=== PATIENT | male | born 1980 | race Caucasian/White ===

== ENCOUNTER 2024-10-16 17:19 | Emergency (ER) | payer MEDICAID, SELFPAY ==
[2024-10-16 17:35] VITALS: BP 133/78; PULSE 92; TEMP 37.3; O2SAT 95; BMI 38.5
--- NOTE | 2024-10-16 17:38 | XR_ITS ---
The [address] [address] Patient Name: MUNA VELA MRN: [id number] date: 1980 Sex: M Assigned Patient Location: ER Current Patient Location: Accession/Order Number: [id number] Exam Date: 10/16/2024 18:15 Report Date: 10/16/2024 19:50 At the request of: PRICE VALLEJO Procedure: XR chest 1V PORTABLE CHEST X-RAY. CLINICAL HISTORY: cough COMPARISON: None. TECHNIQUE: Single AP portable chest radiograph. FINDINGS: TUBES AND LINES: None. LUNGS: There are mild bilateral perihilar interstitial opacities. PLEURA: No effusions or pneumothorax. HEART AND MEDIASTINUM: Within normal limits for portable technique. OSSEOUS STRUCTURES: No acute abnormality. XR/XR chest 1V IMPRESSION: Mild bilateral perihilar interstitial opacities which may be infectious or inflammatory. Electronically authenticated by: ELVA TRAN Date: 10/16/2024 19:50
[2024-10-16 18:04] LABS: Influenza Virus A Antigen Positive; Influenza Virus B Antigen Negative; Internal Control Within Normal Limits; SARS-CoV-2 Ag NEGATIVE (NEGATIVE)
[2024-10-16 18:04] LABS: Internal Control Within Normal Limits; Strep A Antigen Screen Negative
--- NOTE | 2024-10-16 18:49 | ED.URI1 ---
HPI - URI/Sore Throat General Chief Complaint: Upper Respiratory Infection Stated Complaint: COUGH Time Seen by Provider: 10/16/24 18:49 History of Present Illness HPI Narrative: 43 year old male presents to the ED for cough, fatigue, SOB, body aches, congestion. Onset was 4-5 days ago. Denies fever, N/V/D. He is a smoker. He has sleep apnea; he has a CPAP at home. Related Data Previous Rx's ?Medication ?Instructions ?Recorded albuterol sulfate 90 mcg/actuation 2 inh inhalation Q6H PRN shortness 10/16/24 aerosol inhaler of breath or wheezing #8.5 grams azithromycin 250 mg tablet See Rx Instructions PO .COMPLEX #6 10/16/24 (Zithromax Z-Kolby) tabs oseltamivir 75 mg capsule (Tamiflu) 75 mg PO BID 5 days #10 caps 10/16/24 prednisone 10 mg tablet See Rx Instructions .Route 10/16/24 .COMPLEX #30 tabs Allergies Allergy/AdvReac Type Severity Reaction Status Date / Time Sulfa (Sulfonamide AdvReac Severe Unknown Verified 10/16/24 17:35 Antibiotics) Review of Systems ROS Constitutional Reports: fatigue; Denies: fever or chills Ears, nose, mouth, and throat Denies: throat pain or neck pain Cardiovascular Denies: chest pain Respiratory Reports: shortness of breath and cough Gastrointestinal Denies: abdominal pain, nausea, vomiting or diarrhea Musculoskeletal Denies: back pain or neck pain Integumentary/Breast Denies: rash Neurological Denies: headache PFSH PFSH Social History Little interest or pleasure in doing things: not at all Feeling down, depressed, or hopeless: not at all Exam Constitutional Vital Signs, click to edit/add: Last Vital Signs Temp 99.2 F 10/16/24 17:35 Pulse 92 H 10/16/24 19:13 Resp 26 H 10/16/24 19:13 BP 133/78 10/16/24 17:35 Pulse Ox 91 L 10/16/24 19:13 O2 Del Method Room Air 10/16/24 19:13 Common normals: no apparent distress and oriented x3 General appearance: cooperative HENMT Nose: nasal discharge External ear: external ears normal Mouth: oral and palatal mucosa normal, lip normal and tongue normal Throat: posterior oropharynx normal and uvula midline Eye Common normals: conjunctivae normal and no scleral icterus Neck & C-Spine Common normals: supple Chest Chest: symmetrical chest wall rise Respiratory Effort & inspection: able to speak in complete sentences, symmetric chest movement, tachypneic and labored; no grunting and no stridor Cardio Common normals: regular rate and regular rhythm Neuro Common normals: oriented x3 and moves all extremities Sensorium/orientation: awake and alert Speech: speech normal Course Vital Signs Vital signs: Vital Signs Temperature 99.2 F 10/16/24 17:35 Pulse Rate 92 H 10/16/24 17:35 Respiratory Rate 18 10/16/24 17:35 Blood Pressure 133/78 10/16/24 17:35 Pulse Oximetry 95 10/16/24 17:35 Oxygen Delivery Method Room Air 10/16/24 17:35 Temperature 99.2 F 10/16/24 17:35 Pulse Rate 92 H 10/16/24 19:13 Respiratory Rate 26 H 10/16/24 19:13 Blood Pressure 133/78 10/16/24 17:35 Pulse Oximetry 91 L 10/16/24 19:13 Oxygen Delivery Method Room Air 10/16/24 19:13 MDM - URI/Sore Throat MDM Narrative Medical decision making narrative: He tested positive for influenza A. Covid-19 was negative. Chest x-ray showed mild bilateral perihilar interstitial opacities. Findings were discussed with the patient. He requested to be discharged home. He was given Duoneb and solumedrol here. The patient is a smoker. Prescriptions were provided for Proventil, Zithromax, Prednisone, and Tamiflu. Follow up with pcp for a recheck, further evaluation and treatment. Return precautions were discussed. Differential Diagnosis Differential diagnosis: Likely upper respiratory infection, influenza and other (Covid-19, pneumonia, COPD) Medical Records Attestation: I reviewed the patient's medical records. Lab Data Attestation: I reviewed the patient's lab results. Labs: Lab Results 10/16/24 10/16/24 Range/Units 17:40 17:41 Influenza Type A Ag Positive A Influenza Type B Ag Negative SARS-CoV-2 Ag (CV2AG) Negative (NEGATIVE) Streptococcus Screen Negative Imaging Data Chest x-ray: Attestation: I have reviewed the pertinent imaging results. Radiologist's impression: Mild bilateral perihilar interstitial opacities which may be infectious or inflammatory. Discharge Plan Discharge Chief Complaint: Upper Respiratory Infection Clinical Impression: Influenza A Patient Disposition: Home, Self-Care Time of Disposition Decision: 21:13 Condition: Good Mode of Transportation: Private Vehicle Prescriptions / Home Meds: New oseltamivir [Tamiflu] 75 mg capsule 75 mg PO BID 5 Days Qty: 10 0RF prednisone 10 mg tablet See Rx Instructions .ROUTE .COMPLEX Qty: 30 0RF Rx Instructions: Take 5 tablets on days 1-2, 4 tabs on days 3-4, 3 tabs on days 5-6, 2 tabs on days 7-8, 1 tab on days 9-10. albuterol sulfate 90 mcg/actuation HFA aerosol inhaler 2 inh inhalation Q6H PRN (Reason: shortness of breath or wheezing) Qty: 8.5 0RF azithromycin [Zithromax Z-Kolby] 250 mg tablet See Rx Instructions .ROUTE .COMPLEX Qty: 6 0RF Rx Instructions: For 250 mg dose pack: take 500 mg today (day 1), then 250 mg for 4 days (days 2-5) Print Language: Belarusian Instructions: How to Use a Metered-Dose Inhaler (ED), Influenza (ED) Additional Instructions: Return to the ER for worsening symptoms. Referrals: Physician,Non-Staff, [Physician] - 1 week Discharge Date/Time: 10/16/24 21:21
[2024-10-16] MEDS: METHYLPREDNISOLONE SOD SUCC PF 125 MG/2 ML VIAL IM (19:06)
[2024-10-16] MEDS: IPRATROPIUM/ALBUTEROL SULFATE 3 ML AMPUL.NEB IH (19:11)
[2024-10-16 19:13] VITALS: PULSE 92; O2SAT 91
[2024-10-16 21:18] VITALS: PULSE 84; O2SAT 96
== END 2024-10-16 21:21 | disposition home or self-care (01) ==
PROVIDERS: Emergency Medicine; Emergency Provider Emergency Medicine; PCP Family Medicine
DX: J10.1 Influenza due to other identified influenza virus with other respiratory manifestations (principal); F17.200 Nicotine dependence, unspecified, uncomplicated; G47.30 Sleep apnea, unspecified
CPT/HCPCS: 71045; 87070; 87804; 87811; 87880; 94640; 99284; J2919

== ENCOUNTER 2025-02-10 10:11 | Outpatient (OUT) | payer MEDICAID, SELFPAY ==
--- OUTSIDE RECORDS SUMMARY | 2025-02-10 10:17 | XMS_ITS | Patient Health Record ---
Author Organization [employer] [facility] Address [address] [place] [address] Care Team Providers Care Associate Application Developer Name Role Phone XXReji Ruiz Primary Care Provider [phone] Reason For Referral No Information Medications Medication SIG (Take, Route, Fr equency, Duration) Notes Start Date End Date Status Vicodin 5-325 MG 1 tablet as needed O rally every 4-6 hrs prn pain 07/17/2014 Active BuSpar 10 mg 1 tablet orally thre e times a day (tid) Dr Morelos Active Problems Problem Type SNOMED Code ICD Code Onset Dates Problem Status W/U Status Risk Notes Problem Strain of supraspinatus muscle AND/OR tendon (53184187) Supraspinatus (muscle) (tendon) sprain and strain (840.6) Active confirmed Plan Of Treatment No Information Insurance Providers Payer Name Payer Address Payer Phone Subscriber Number Group Number Insured Name Patient Relationship to Insured Coverage Start Date Coverage End Date XXXSELF PAY MUNA VELA Self - patient is the insured Medical (General) History Medical History History ICD Code depression Hospitalization History Reason Date(Month/Year) [facility] 04/01/2014
--- OUTSIDE RECORDS SUMMARY | 2025-02-10 10:37 | XMS_ITS | CCD ---
Author Organization [facility] Care Team Providers Care Video Editing Internship Name Role Phone HOUSE, DR RODRIGUEZ Primary Care Unavailable EVENS, DR CHUY Bunch Consulting Unavailabl e EVENS, DR CHUY Bunch Attending Unavailabl e EVENS, DR CHUY Bunch Admitting Unavailabl e TRISH, ELHAM PATINO Consulting Unavailable FLOYDS KNOBS, DR CRISOSTOMO Consulting Unavailable HOUSE, DR RODRIGUEZ Primary Care Unavailable HOUSE, DR RODRIGUEZ Consulting Unavailable HOUSE, DR RODRIGUEZ Attending Unavailable HOUSE, DR RODRIGUEZ Admitting Unavailable House, DO Rodriguez Primary Care Provider House, DO Rodriguez Attending Provider House, Stu Attending Unavailable House, Stu Primary Care Unavailable House, Stu Admitting Unavailable HOUSE, STU Kang Primary Care Unavailable HOUSE, DO STU Kang Attending Unavailable HOUSE, STU P Primary Care Unavailable HOUSE, DO STU P Attending Unavailable HOUSE, STU P Primary Care Unavailable HOUSE, DO STU P Attending Unavailable HOUSE, STU P Primary Care Unavailable HOUSE, DO STU P Attending Unavailable HOUSE, STU P Primary Care Unavailable HOUSE, DO STU Kang Attending Unavailable Allergies Allergy Classification Reported Allergen(s) Allergy Type Date of Onset Reaction(s) Facility (1 source) Sulfonamides (Antibiotic) Drug allergy (disorder) 0 [facility] Repository (1 source) sulfa drug; Translations: [sulfa drug] Propensity to adverse reactions to drug (disorder) [facility] Repository Problems Problem Classification Problem Date Documented Da te Episodic/Chronic Diabetes mellitus without complication (4 sources) Type 2 diabetes mellitus without complications; Translations: [TYPE 2 DM WITHOUT COMPLICATIONS] Onset: 08-31-2022 Chronic Essential hypertension (2 sources) Essential (primary) hypertension; Translations: [ESSENTIAL PRIMARY HYPERTENSION] Onset: 09-07-2022 Chronic Mood disorders (1 source) Major depressive disorder, single episode, severe with psychotic features; Translations: [ALEXANDREA DEPRESS 1 EPIS SEV W/PSYCH FEAT] Onset: 08-13-2022 Chronic Other aftercare (1 source) Other emt intermediate (current) drug therapy; Translations: [OTH [facility] CURRENT DRUG THERAPY] Onset: 08-13-2022 Episodic Residual codes; unclassified (1 source) Obstructive sleep apnea (adult)(pediatric); Translations: [Obstructive sleep apnea (adult) (pediatric)] Onset: 06-12-2023 Chronic Substance-related disorders (1 source) Nicotine dependence, cigarettes, uncomplicated; Translations: [NICOTINE DEPEND CIGARETTES UNCOMP] Onset: 08-13-2022 Chronic Substance-related disorders (1 source) Cannabis use, unspecified, uncomplicated; Translations: [CANNABIS USE UNS UNCOMPLICATED] Onset: 08-13-2022 Episodic Suicide and intentional self-inflicted injury (4 sources) Suicidal ideations; Translations: [SUICIDAL IDEATIONS] Onset: 08-09-2022 Episodic Unclassified (1 source) CONTACT W/AND (SUSP) EXPOS COVID-19; Translations: [CONTACT W/AND (SUSP) EXPOS COVID-19] Onset: 08-13-2022 Results Test Name Value Interpretation Reference Range Facil ity Outside Recordson 10-22-2024 Outside Records [id number] [address] Rad - Other Radiology Report on 10-17-2024 Rad - Other Radiology Report [id number] [address] Outside Recordson 05-20-2024 Outside Records [id number] [address] [place] [address] Controlled Substances Agreem entson 05-06-2024 Controlled Substances Agreements [id number] 6#1.00[facility] GLYCOHEMOGLOBIN A1Con 2021 ADA RECOMMENDATION SEE BELOW Normal [facility] Comment on above: Result Comment: ADA RECOMMENDED LIMIT 4.0 - 6.0 ADA THERAPEUTIC TARGET < 7.0 ACTION SUGGESTED > 7.0 Performed By: #### A 1C #### [facility] [address] [place] [address] Dr. Beverly Jason Glucose [Mass/Vol] 103 mg/dL Normal [facility] Comment on above: Performed By: #### A 1C #### [facility] [address] [place] [address] Dr. Beverly Jason HbA1c (Bld) [Mass fraction] 5.2 % Normal 4.5-6.2 [facility] Comment on above: Performed By: #### A 1C #### [facility] [address] [place] [address] Dr. Beverly Jason ACETAMINOPHENon 08-09-2022 Acetaminophen [Mass/Vol] ug/mL Critically low 10.0-30.0 [facility] Comment on above: Performed By: #### S ALYC, ETH, ACET, CMP #### [facility] [address] [place] [address] Dr. Beverly Jason CBC AUTO DIFFon 08-09-2022 BASO # 0.0 103/ul Normal 0.0-0.1 [facility] Comment on above: Performed By: #### C BC #### [facility] [address] [place] [address] Dr. Beverly Jason Basophils/100 WBC (Bld) 0.3 % Normal 0.2-2.0 [facility] Comment on above: Performed By: #### C BC #### [facility] [address] [place] [address] Dr. Beverly Jason EO # 0.2 103/ul Normal 0.0-0.7 [facility] Comment on above: Performed By: #### C BC #### [facility] [address] [place] [address] Dr. Beverly Jason Eosinophils/100 WBC (Bld) 1.9 % Normal 0.9-7.0 [facility] Comment on above: Performed By: #### C BC #### [facility] [address] [place] [address] Dr. Beverly Jason Erythrocyte distribution width (RBC) [Ratio] 13.6 % Normal 11.0-15.0 [facility] Comment on above: Performed By: #### C BC #### [facility] [address] [place] [address] Dr. Beverly Jason Hematocrit (Bld) [Volume fraction] 40.3 % Critically low 42.0-54.0 [facility] Comment on above: Performed By: #### C BC #### [facility] [address] [place] [address] Dr. Beverly Jason Hemoglobin (Bld) [Mass/Vol] 13.6 g/dL Critically low 14.0-18.0 [facility] Comment on above: Performed By: #### C BC #### [facility] [address] [place] [address] Dr. Beverly Jason IG # 0.06 10e3/ul Critically high 0.00-0.03 [facility] Comment on above: Performed By: #### C BC #### [facility] [address] [place] [address] Dr. Beverly Jason IG % 0.6 % Critically high 0.0-0.5 [facility] Comment on above: Performed By: #### C BC #### [facility] [address] [place] [address] Dr. Beverly Jason LYMPH # 3.2 103/ul Normal 1.2-3.8 [facility] Comment on above: Performed By: #### C BC #### [facility] [address] [place] [address] Dr. Beverly Jason Lymphocytes/100 WBC (Bld) 30.7 % Normal 20.5-60.0 [facility] Comment on above: Performed By: #### C BC #### [facility] [address] [place] [address] Dr. Beverly Jason MANUAL DIFF REQ NO Normal [facility] Comment on above: Performed By: #### C BC #### [facility] [address] [place] [address] Dr. Beverly Jason MCH (RBC) [Entitic mass] 29.4 pg Normal 25.9-34.0 [facility] Comment on above: Performed By: #### C BC #### [facility] [address] [address] [address] Beverly Jason MCHC (RBC) [Mass/Vol] 33.7 g/dL Normal 29.9-35.2 [facility] Comment on above: Performed By: #### C BC #### [facility] [address] [address] [address] Beverly Jason MCV (RBC) [Entitic vol] 87.0 fL Normal 80.0-94.0 [facility] Comment on above: Performed By: #### C BC #### [facility] [address] [place] [address] Dr. Beverly Jason MONO # 0.7 103/ul Normal 0.3-0.8 [facility] Comment on above: Performed By: #### C BC #### [facility] [address] [place] [address] Dr. Beverly Jason Monocytes/100 WBC (Bld) 6.9 % Normal 1.7-12.0 [facility] Comment on above: Performed By: #### C BC #### [facility] [address] [place] [address] Dr. Beverly Jason NEUT # 6.2 103/ul Normal 1.4-6.5 [facility] Comment on above: Performed By: #### C BC #### [facility] [address] [place] [address] Dr. Beverly Jason Neutrophils/100 WBC (Bld) 59.6 % Normal 43.0-75.0 [facility] Comment on above: Performed By: #### C BC #### [facility] [address] [place] [address] Dr. Beverly Jason Platelet mean volume (Bld) [Entitic vol] 9.8 fL Normal 9.5-13.5 [facility] Comment on above: Performed By: #### C BC #### [facility] [address] [place] [address] Dr. Beverly Jason PLT 235 103/ul Normal 150-450 [facility] Comment on above: Performed By: #### C BC #### [facility] [address], [place] [address] Dr. Beverly Jason RBC 4.63 106/ul Critically low 4.70-6.[address] [facility] Comment on above: Performed By: #### C BC #### [facility] [address], [place] [address] Dr. Beverly Jason WBC 10.5 103/ul Normal 4.0-11.0 [facility] Comment on above: Performed By: #### C BC #### [facility] [id number] Beverly Jason Covid-19 PCR (CVDTBH)on 07-13 SARS-CoV-2 (COVID-19) RNA POP+probe Ql (Unsp spec) Not detected Normal NOT DETECTED [facility] Comment on above: Result Comment: When diagnostic testing is negative, the possibility of a false negative should be considered in the context of a patient's recent exposures and the presence of clinical signs and symptoms consistent with SARS-CoV-2. This test is not yet approved or cleared by the [place] FDA. When there are no FDA-approved or cleared tests available, and other criteria are met, FDA can make tests available under an emergency access mechanism called an Emergency Use Authorization (EUA). The EUA for this test is supported by the [employer] and Human Service's declaration that circumstances exist to justify the emergency use of in vitro diagnostics for the detection and/or diagnosis of the virus that causes COVID-19. This EUA will remain in effect for the duration of the COVID-19 declaration justifying emergency of IVDs, unless it is terminated or revoked by the FDA (after which the test may no longer be used). Performed By: #### C VDTBH #### [facility] [address] [place], [place] [id number] Dr. Beverly Jason DRUG SCREEN RAPID (URINE)on 08-09-2022 AMP Positive Abnormal NEGATIVE [facility] Comment on above: Performed By: #### D RUGRPD #### [facility] [address] [id number] Beverly Jason BAR Negative Normal NEGATIVE [facility] Comment on above: Performed By: #### D RUGRPD #### [facility] [address] [place] [address] Dr. Beverly Jason BUP Positive Abnormal NEGATIVE [facility] Comment on above: Performed By: #### D RUGRPD #### [facility] [address] [place] [address] Dr. Beverly Jason BZO Positive Abnormal NEGATIVE [facility] Comment on above: Performed By: #### D RUGRPD #### [facility] [address] [place] [address] Dr. Beverly Jason ROQUE Negative Normal NEGATIVE [facility] Comment on above: Performed By: #### D RUGRPD #### [facility] [address] [place] [address] Dr. Beverly Jason CUT-OFFS SEE BELOW Normal [facility] Comment on above: Result Comment: AMP (Amphetamine): 500ng/mL, BAR (Barbituates): 200 ng/mL, BZO (Benzodiazepines): 150 ng/mL, BUP (Buprenorphine): 10 ng/mL, ROQUE (Cocaine): 150 ng/mL, mAMP (Methamphetamine): 500 ng/mL, MTD (Methadone): 200 ng/mL, OPI (Opiates): 100 ng/mL, OXY (Oxycodone): 100 ng/mL, PCP (Phencyclidine): 25 ng/mL, PPX (Propoxyphene): 300 ng/mL, THC (Cannabinoids): 50 ng/mL, TCA (Trycyclic Antidepressants): 300 ng/mL Performed By: #### D RUGRPD #### [facility] [address] [place] [address] Dr. Beverly Jason DRUG CUT HEADER DRUG CLASS TEST SYSTEM CUT-OFF CONCENTRATIONS ARE FOLLOWS: Normal [facility] Comment on above: Performed By: #### D RUGRPD #### [facility] [address] [place] [address] Dr. Beverly Jason mAMP Negative Normal NEGATIVE [facility] Comment on above: Performed By: #### D RUGRPD #### [facility] [address] [place] [address] Dr. Beverly Jason MTD Negative Normal NEGATIVE [facility] Comment on above: Performed By: #### D RUGRPD #### [facility] [address] [address] [address] Beverly Jason OPI Negative Normal NEGATIVE [facility] Comment on above: Performed By: #### D RUGRPD #### [facility] [address] [address] [address] Beverly Jason OXY Negative Normal NEGATIVE [facility] Comment on above: Performed By: #### D RUGRPD #### [facility] [address] [address] [address] Beverly Jason PCP Negative Normal NEGATIVE [facility] Comment on above: Performed By: #### D RUGRPD #### [facility] [address] [place] [address] Dr. Beverly Jason PPX Negative Normal NEGATIVE [facility] Comment on above: Performed By: #### D RUGRPD #### [facility] [address] [address] [address] Beverly Jason TCA Negative Normal NEGATIVE [facility] Comment on above: Performed By: #### D RUGRPD #### [facility] [address] [address] [address] Beverly Jason THC Positive Abnormal NEGATIVE [facility] Comment on above: Performed By: #### D RUGRPD #### [facility] [address] [address] [address] Beverly Jason ETHANOL (BLD ALC)on 08-09-20 22 ALC NOTE NOTE: 80 mg/dl is the legal limit for a blood alcohol level Normal [facility] Comment on above: Performed By: #### S ALYC, ETH, ACET, CMP #### [facility] [address] [address] [address] Beverly Jason Ethanol [Mass/Vol] mg/dL Normal [facility] Comment on above: Performed By: #### S ALYC, ETH, ACET, CMP #### [facility] [address] [place] [address] Dr. Beverly Jason PROF 14(COMP METB)on 11-30-2 022 Albumin [Mass/Vol] 4.3 g/dL Normal 3.4-5.0 [facility] Comment on above: Performed By: #### S ALYC, ETH, ACET, CMP #### [facility] [address] [place] [address] Dr. Beverly Jason Albumin/Globulin [Mass ratio] 1.3 {ratio} Normal [facility] Comment on above: Performed By: #### S ALYC, ETH, ACET, CMP #### [facility] [address] [place] [address] Dr. Beverly Jason ALP [Catalytic activity/Vol] 57 U/L Normal 46-116 [facility] Comment on above: Performed By: #### S ALYC, ETH, ACET, CMP #### [facility] [address] [place] [address] Dr. Beverly Jason ALT [Catalytic activity/Vol] 45 U/L Normal 16-63 [facility] Comment on above: Performed By: #### S ALYC, ETH, ACET, CMP #### [facility] [address] [place] [address] Dr. Beverly Jason Anion gap [Moles/Vol] 12.9 mmol/L Normal [facility] Comment on above: Performed By: #### S ALYC, ETH, ACET, CMP #### [facility] [address] [place] [address] Dr. Beverly Jason AST [Catalytic activity/Vol] 16 U/L Normal 15-37 [facility] Comment on above: Performed By: #### S ALYC, ETH, ACET, CMP #### [facility] [address] [place] [address] Dr. Beverly Jason Bilirubin [Mass/Vol] 0.1 mg/dL Critically low 0.2-1.0 [facility] Comment on above: Performed By: #### S ALYC, ETH, ACET, CMP #### [facility] [address] [place] [address] Dr. Beverly Jason Calcium [Mass/Vol] 9.0 mg/dL Normal 8.5-10.1 [facility] Comment on above: Performed By: #### S ALYC, ETH, ACET, CMP #### [facility] [address] [place] [address] Dr. Beverly Jason Chloride [Moles/Vol] 105 mmol/L Normal 98-107 [facility] Comment on above: Performed By: #### S ALYC, ETH, ACET, CMP #### [facility] [address] [place] [address] Dr. Beverly Jason CO2 [Moles/Vol] 28.0 mmol/L Normal 21.0-32.0 [facility] Comment on above: Performed By: #### S ALYC, ETH, ACET, CMP #### [facility] [address] [place] [address] Dr. Beverly Jason Creatinine [Mass/Vol] 1.07 mg/dL Normal 0.70-1.30 [facility] Comment on above: Performed By: #### S ALYC, ETH, ACET, CMP #### [facility] [address] [place] [address] Dr. Beverly Jason EGFR-AF TURKS AND CAICOS ISLANDER >60 Normal >=60 [facility] Comment on above: Performed By: #### S ALYC, ETH, ACET, CMP #### [facility] [address] [place] [address] Dr. Beverly Jason EGFR-NON AF TURKS AND CAICOS ISLANDER >60 Normal >=60 [facility] Comment on above: Performed By: #### S ALYC, ETH, ACET, CMP #### [facility] [address] [place] [address] Dr. Beverly Jason Globulin (S) [Mass/Vol] 3.4 g/dL Normal [facility] Comment on above: Performed By: #### S ALYC, ETH, ACET, CMP #### [facility] [address] [place] [address] Dr. Beverly Jason Glucose [Mass/Vol] 102 mg/dL Normal 74-106 [facility] Comment on above: Performed By: #### S ALYC, ETH, ACET, CMP #### [facility] [address] [place] [address] Dr. Beverly Jason Potassium [Moles/Vol] 3.9 mmol/L Normal 3.5-5.1 [facility] Comment on above: Performed By: #### S ALYC, ETH, ACET, CMP #### [facility] [address] [address] [address] Beverly Jason Protein [Mass/Vol] 7.7 g/dL Normal 6.4-8.2 [facility] Comment on above: Performed By: #### S ALYC, ETH, ACET, CMP #### [facility] [address] [address] [address] Beverly Jason Sodium [Moles/Vol] 142 mmol/L Normal 136-145 [facility] Comment on above: Performed By: #### S ALYC, ETH, ACET, CMP #### [facility] [address] [place] [address] Dr. Beverly Jason Urea nitrogen [Mass/Vol] 23.0 mg/dL Critically high 7.0-18.0 [facility] Comment on above: Performed By: #### S ALYC, ETH, ACET, CMP #### [facility] [address] [address] [address] Beverly Jason Urea nitrogen/Creatinine [Mass ratio] 21.5 mg/mg Normal [facility] Comment on above: Performed By: #### S ALYC, ETH, ACET, CMP #### [facility] [address] [place] [address] Dr. Beverly Jason SALICYLATEon 08-09-2022 SALICYLATE <2.8 Normal <=19.9 [facility] Comment on above: Performed By: #### S ALYC, ETH, ACET, CMP #### [facility] [address] [place] [address] Dr. Beverly Jason TROPONIN, HIGH SENSITIVITYon 08-09-2022 HSTROP 12.2 pg/mL Normal 4.0-76.1 [facility] Comment on above: Result Comment: CUT- OFF POINTS HAVE BEEN ESTABLISHED BASED ON THE FOURTH UNIVERSAL DEFINITIONS OF MYOCARDIAL INFARCTION. THE UPPER REFERENCE LIMIT (URL) OF TROPONIN, DEFINED THE 99TH PERCENTILE OF cTnI DISTRIBUTION IN A REFERENCE POPULATION, HAS BEEN CONFIRMED THE DECISION THRESHOLD FOR ID DIAGNOSIS. Performed By: #### H STROPN #### [facility] [address] [place] [address] Dr. Beverly Jason Encounters Encounter Date Encounter Type Care Provider Facility Start: 01-26-2025 ambulatory STU Kang HOUSE Facilit y:[facility] Start: 10-27-2024 End: 10-27-2024 ambulatory STU P HOUSE Facility:[facility] Start: 07-29-2024 End: 07-29-2024 ambulatory STU P HOUSE Facility:[facility] Start: 05-05-2024 End: 05-05-2024 ambulatory STU P HOUSE Facility:[facility] Start: 04-10-2024 End: 04-10-2024 ambulatory STU CHURCH Facility:[facility] Start: 06-12-2023 End: 06-12-2023 ambulatory Stu House Facility:[facility] Start: 06-12-2023 End: 06-12-2023 ambulatory DO Stu Church Work Phone: [facility] Work Phone: Start: 06-12-2023 End: 06-12-2023 Patient encounter procedure DO Stu Ranjit Work Phone: [facility] Work Phone: Start: 08-31-2022 End: 09-01-[address] STU CHURCH Facility:[facility] Start: 08-09-2022 End: 08-10-[address] STU CHURCH Facility:[facility] Payers Date Payer Category Payer Self-pay 2022 Medicaid [id number] 1980 Unknown [id number] .16.84 [id number] 1982 Unknown [id number] .16.84 [id number] 1982 Unknown [id number] 2.16.8 [id number] 1982 Unknown [id number] 2.16.8 [id number] 1982 Unknown [id number] 2.16.8 [id number] 1982 Unknown [id number] 2.16.8 [id number] 1982 Unknown [id number] 2.16.8 [id number] 1959 Unknown [id number] Medicaid [place] [employer] [id number] 801 [id number] Unknown [id number] 2.16.8 [id number] Social History Date Type Detail Facility Tobacco smoking stat [facility] Unknown if ever smoked [facility] Work Phone: Start: 1980 Sex Assigned At Male F [facility] Clinical Notes 02-18-2024 to 02-02-2025 Note Date & Type Note Facility 02-02-2025 Note Entered by CHANTELLE CHURCH DO on February 02, 2025 10:35:46 EDT From: STU CHURCH DO To: [facility]/pharmacy #[id number] Sent: 02/02/2025 10:35:46 EDT Subject: Medication Management Submitted: Complete:atenolol (atenolol 100 mg oral tablet) Signed by STU CHURCH DO 02/02/2025 10:35:00 EDT Approved with modifications: atenolol (ATENOLOL 100 MG TABLET) TAKE 1 TABLET BY MOUTH EVERY DAY Qty: 30 tab(s) Days Supply: 30 Refills: 5 Substitutions Allowed Route To Pharmacy - [facility]/pharmacy #[id number] --- From: [id number] To: STU CHURCH DO Sent: February 01, 2025 6:33:12 AM CDT Subject: Medication Management Due: February 02, 2025 12:04:43 AM CDT On Hold Pending Signature Dispensed Drug: atenolol (atenolol 100 mg oral tablet), TAKE 1 TABLET BY MOUTH EVERY DAY Quantity: 30 tab(s) Days Supply: 30 Refills: 5 Substitutions Allowed Notes from Pharmacy: --- [facility] 01-26-2025 Note Entered by CHANTELLE CHURCH DO on January 26, 2025 07:29:31 EDT From: STU CHURCH [id number] Sent: 01/26/2025 07:29:31 EDT Subject: Medication Management Submitted: Complete:DULoxetine (DULoxetine 60 mg oral delayed release capsule) Signed by STU CHURCH DO 01/26/2025 07:29:00 EDT Approved with modifications: DULoxetine (DULOXETINE HCL DR 60 MG CAP) TAKE 1 CAPSULE BY MOUTH EVERY DAY Qty: 30 cap(s) Days Supply: 30 Refills: 5 Substitutions Allowed Route To Pharmacy - [facility]/pharmacy #[id number] --- From: [facility] STORE [id number] To: STU CHURCH DO Sent: January 25, 2025 6:33:25 AM CDT Subject: Medication Management Due: January 26, 2025 12:34:47 AM CDT On Hold Pending Signature Dispensed Drug: DULoxetine (DULoxetine 60 mg oral delayed release capsule), TAKE 1 CAPSULE BY MOUTH EVERY DAY Quantity: 30 cap(s) Days Supply: 30 Refills: 2 Substitutions Allowed Notes from Pharmacy: --- [facility] 01-15-2025 Note - From: STU CHURCH DO To: [facility] Clinical Pool ([facility]); Sent: 01/15/2025 07:28:16 EDT Subject: FW: Medication Management Due Date/Time: 01/15/2025 18:36:00 EDT Caller Name: MUNA VELA; Caller Number: Glo , Manfred --- From: [employer] [id number] To: STU CHURCH DO Sent: January 14, 2025 5:36:50 PM CDT Subject: Medication Management Due: January 15, 2025 12:18:29 AM CDT On Hold Pending Signature Dispensed Drug: LORazepam (LORazepam 1 mg oral tablet), TAKE 1 TABLET BY MOUTH THREE TIMES A DAY Quantity: 90 tab(s) Days Supply: 30 Refills: 0 Substitutions Allowed Notes from Pharmacy: Not to exceed 5 additional fills before 06/14/2025 --- From: Lalita Pagan To: [id number] Sent: 01/15/2025 07:45:21 EDT Subject: FW: Medication Management Not Approved: proposed to provider LORazepam (LORAZEPAM 1 MG TABLET) TAKE 1 TABLET BY MOUTH THREE TIMES A DAY Qty: 90 tab(s) Days Supply: 30 Refills: 0 Substitutions Allowed Route To Pharmacy - [id number] Note from Pharmacy: Not to exceed 5 additional fills before 06/14/2025 Signed by Laliat Pagan [facility] 01-04-2025 Note Entered by CHANTELLE CHURCH DO on January 04, 2025 19:06:42 EDT From: STU CHURCH DO To: [facility]/pharmacy #[id number] Sent: 01/04/2025 19:06:42 EDT Subject: Medication Management Submitted: Complete:tiZANidine (tiZANidine 4 mg oral tablet) Signed by STU CHURCH DO 01/04/2025 19:06:00 EDT Approved with modifications: tiZANidine (TIZANIDINE HCL 4 MG TABLET) TAKE 1 TABLET BY MOUTH EVERY DAY Qty: 30 tab(s) Days Supply: 30 Refills: 2 Substitutions Allowed Route To Pharmacy - [facility]/pharmacy #[id number] --- From: [facility] [id number] To: STU CHURCH DO Sent: January 04, 2025 6:47:23 AM CDT Subject: Medication Management Due: January 05, 2025 12:13:09 AM CDT On Hold Pending Signature Dispensed Drug: tiZANidine (tiZANidine 4 mg oral tablet), TAKE 1 TABLET BY MOUTH EVERY DAY Quantity: 30 tab(s) Days Supply: 30 Refills: 2 Substitutions Allowed Notes from Pharmacy: --- [facility] 12-25-2024 Note Entered by CHANTELLE CHURCH DO on December 25, 2024 07:29:43 EDT From: STU CHURCH DO To: [facility]/pharmacy #[id number] Sent: 12/25/2024 07:29:43 EDT Subject: Medication Management Submitted: Complete:hydroCHLOROthiazide (hydroCHLOROthiazide 25 mg oral tablet) Signed by STU CHURCH DO 12/25/2024 07:29:00 EDT Approved hydroCHLOROthiazide (HYDROCHLOROTHIAZIDE 25 MG TAB) TAKE 1 TABLET BY MOUTH EVERY DAY Qty: 30 tab(s) Days Supply: 30 Refills: 1 Substitutions Allowed Route To Pharmacy - [facility]/pharmacy #[id number] --- From: [employer] To: STU CHURCH DO Sent: December 24, 2024 11:25:25 PM CDT Subject: Medication Management Due: December 25, 2024 12:05:31 AM CDT On Hold Pending Signature Dispensed Drug: hydroCHLOROthiazide (hydroCHLOROthiazide 25 mg oral tablet), TAKE 1 TABLET BY MOUTH EVERY DAY Quantity: 30 tab(s) Days Supply: 30 Refills: 1 Substitutions Allowed Notes from Pharmacy: --- [facility] 12-15-2024 Note - From: STU CHURCH DO To: [facility] Clinical Pool ([facility]); Sent: 12/15/2024 08:37:39 EDT Subject: FW: Medication Management Due Date/Time: 12/15/2024 07:08:00 EDT Caller Name: MUNA VELA; Caller Number: , --- From: [employer] To: STU CHURCH DO Sent: December 12, 2024 6:08:33 AM CDT Subject: Medication Management Due: December 13, 2024 12:08:00 AM CDT On Hold Pending Signature Dispensed Drug: LORazepam (LORazepam 1 mg oral tablet), TAKE 1 TABLET BY MOUTH THREE TIMES A DAY Quantity: 90 tab(s) Days Supply: 30 Refills: 0 Substitutions Allowed Notes from Pharmacy: Not to exceed 5 additional fills before 05/10/2025 --- From: Lalita Pagan To: [facility]/pharmacy #[id number] Sent: 12/15/2024 09:36:01 EDT Subject: FW: Medication Management Not Approved: proposed to provider LORazepam (LORAZEPAM 1 MG TABLET) TAKE 1 TABLET BY MOUTH THREE TIMES A DAY Qty: 90 tab(s) Days Supply: 30 Refills: 0 Substitutions Allowed Route To Pharmacy - [facility]/pharmacy #[id number] Note from Pharmacy: Not to exceed 5 additional fills before 05/10/2025 Signed by Lalita Pagan [facility] 11-13-2024 Note Entered by CHANTELLE CHURCH DO on November 13, 2024 07:29:16 EST From: STU CHURCH DO To: [facility]/pharmacy #[id number] Sent: 11/13/2024 07:29:16 EST Subject: Medication Management Submitted: Complete:metFORMIN (metFORMIN 500 mg oral tablet) Signed by STU CHURCH DO 11/13/2024 07:29:00 EST Approved with modifications: metFORMIN (METFORMIN HCL 500 MG TABLET) TAKE 1 TABLET BY MOUTH TWICE A DAY Qty: 180 tab(s) Days Supply: 90 Refills: 1 Substitutions Allowed Route To Pharmacy - [facility]/pharmacy #[id number] --- From: [facility] STORE [id number] To: STU CHURCH DO Sent: November 12, 2024 11:23:10 PM ROPING MACHINE TENDER Subject: Medication Management Due: November 13, 2024 11:38:58 AM ROPING MACHINE TENDER On Hold Pending Signature Dispensed Drug: metFORMIN (metFORMIN 500 mg oral tablet), TAKE 1 TABLET BY MOUTH TWICE A DAY Quantity: 180 tab(s) Days Supply: 90 Refills: 1 Substitutions Allowed Notes from Pharmacy: --- [facility] 11-10-2024 Note - From: STU CHURCH DO To: [facility] Clinical Pool ([facility]); Sent: 11/10/2024 07:46:35 EST Subject: FW: Medication Management Due Date/Time: 11/11/2024 07:13:00 EST Caller Name: MUNA VELA; Caller Number: Glo , Manfred --- From: [employer] [id number] To: STU CHURCH DO Sent: November 10, 2024 6:13:19 AM ROPING MACHINE TENDER Subject: Medication Management Due: November 11, 2024 12:02:49 AM ROPING MACHINE TENDER On Hold Pending Signature Dispensed Drug: LORazepam (LORazepam 1 mg oral tablet), TAKE 1 TABLET BY MOUTH THREE TIMES A DAY Quantity: 90 tab(s) Days Supply: 30 Refills: 0 Substitutions Allowed Notes from Pharmacy: Not to exceed 5 additional fills before 04/11/2025 --- From: Malgorzata Zamudio MA [facility]: [id number] Sent: 11/10/2024 16:27:42 EST Subject: FW: Medication Management Not Approved: Refill not appropriate, proposal sent to provider LORazepam (LORAZEPAM 1 MG TABLET) TAKE 1 TABLET BY MOUTH THREE TIMES A DAY Qty: 90 tab(s) Days Supply: 30 Refills: 0 Substitutions Allowed Route [facility] - [id number] Note from Pharmacy: Not to exceed 5 additional fills before 04/11/2025 Signed by Malgorzata Zamudio MA [facility] 10-23-2024 Note Entered by CHANTELLE CHURCH DO on October 23, 2024 07:38:32 EST From: STU CHURCH DO To: [facility]/pharmacy #[id number] Sent: 10/23/2024 07:38:32 EST Subject: Medication Management Submitted: Complete:lisinopril (lisinopril 20 mg oral tablet) Signed by STU CHURCH DO 10/23/2024 07:38:00 EST Submitted: Complete:lisinopril (lisinopril 10 mg oral tablet) Signed by STU CHURCH DO 10/23/2024 07:38:00 EST Approved with modifications: lisinopril (LISINOPRIL 20 MG TABLET) TAKE 1 TABLET BY MOUTH EVERY DAY Qty: 30 tab(s) Days Supply: 30 Refills: 5 Substitutions Allowed Route To Pharmacy - [facility]/pharmacy #[id number] --- From: [employer] [facility] [id number] To: STU CHURCH DO Sent: October 22, 2024 11:40:42 PM ROPING MACHINE TENDER Subject: Medication Management Due: October 23, 2024 12:19:25 AM ROPING MACHINE TENDER On Hold Pending Signature Dispensed Drug: lisinopril (lisinopril 20 mg oral tablet), TAKE 1 TABLET BY MOUTH EVERY DAY Quantity: 30 tab(s) Days Supply: 30 Refills: 2 Substitutions Allowed Notes from Pharmacy: --- [facility] 10-19-2024 Note Entered by CHANTELLE CHURCH DO on October 19, 2024 17:52:18 EST From: STU CHURCH DO To: [facility]/pharmacy #[id number] Sent: 10/19/2024 17:52:18 EST Subject: Medication Management Submitted: Complete:DULoxetine (Cymbalta 60 mg oral delayed release capsule) Signed by STU CHURCH DO 10/19/2024 17:52:00 EST Approved DULoxetine (DULOXETINE HCL DR 60 MG CAP) TAKE 1 CAPSULE BY MOUTH EVERY DAY Qty: 30 cap(s) Days Supply: 30 Refills: 2 Substitutions Allowed Route To Pharmacy - [facility]/pharmacy #[id number] --- From: [employer] To: STU CHURCH DO Sent: October 19, 2024 6:33:03 AM ROPING MACHINE TENDER Subject: Medication Management Due: October 20, 2024 12:12:00 AM ROPING MACHINE TENDER On Hold Pending Signature Dispensed Drug: DULoxetine (DULoxetine 60 mg oral delayed release capsule), TAKE 1 CAPSULE BY MOUTH EVERY DAY Quantity: 30 cap(s) Days Supply: 30 Refills: 2 Substitutions Allowed Notes from Pharmacy: --- [facility] 10-13-2024 Note - From: STU CHURCH DO To: [facility] Clinical Pool ([facility]); Sent: 10/13/2024 08:37:27 EST Subject: FW: Medication Management Due Date/Time: 10/14/2024 08:20:00 EST Caller Name: MUNA VELA; Caller Number: , --- From: [employer] To: STU CHURCH DO Sent: October 13, 2024 7:20:26 AM ROPING MACHINE TENDER Subject: Medication Management Due: October 14, 2024 12:21:37 AM ROPING MACHINE TENDER On Hold Pending Signature Dispensed Drug: LORazepam (LORazepam 1 mg oral tablet), TAKE 1 TABLET BY MOUTH THREE TIMES A DAY Quantity: 90 tab(s) Days Supply: 30 Refills: 0 Substitutions Allowed Notes from Pharmacy: Not to exceed 5 additional fills before 02/10/2025 --- From: Lalita Mccarthy To: [facility]/pharmacy #[id number] Sent: 10/13/2024 08:41:47 EST Subject: FW: Medication Management Not Approved: proposed to provider LORazepam (LORAZEPAM 1 MG TABLET) TAKE 1 TABLET BY MOUTH THREE TIMES A DAY Qty: 90 tab(s) Days Supply: 30 Refills: 0 Substitutions Allowed Route To Pharmacy - [facility]/pharmacy #[id number] Note from Pharmacy: Not to exceed 5 additional fills before 02/10/2025 Signed by Lalita Mccarthy [facility] 10-13-2024 Note Entered by CHANTELLE CHURCH DO on October 13, 2024 07:19:44 EST From: STU CHURCH DO To: [facility]/pharmacy #[id number] Sent: 10/13/2024 07:19:44 EST Subject: Medication Management Submitted: Complete:tiZANidine (tiZANidine 4 mg oral tablet) Signed by STU CHURCH DO 10/13/2024 07:19:00 EST Approved with modifications: tiZANidine (TIZANIDINE HCL 4 MG TABLET) TAKE 1 TABLET BY MOUTH EVERY DAY Qty: 30 tab(s) Days Supply: 30 Refills: 2 Substitutions Allowed Route To Pharmacy - [facility]/pharmacy #[id number] --- From: [employer] STORE [id number] To: STU CHURCH DO Sent: October 12, 2024 6:35:09 AM ROPING MACHINE TENDER Subject: Medication Management Due: October 13, 2024 12:02:49 AM ROPING MACHINE TENDER On Hold Pending Signature Dispensed Drug: tiZANidine (tiZANidine 4 mg oral tablet), TAKE 1 TABLET BY MOUTH EVERY DAY Quantity: 30 tab(s) Days Supply: 30 Refills: 2 Substitutions Allowed Notes from Pharmacy: --- [facility] 09-15-2024 Note - From: STU CHURCH DO To: [facility] Clinical Pool ([facility]); Sent: 09/15/2024 08:49:57 EST Subject: FW: Medication Management Due Date/Time: 09/16/2024 08:22:00 EST Caller Name: MUNA VELA; Caller Number: Glo , M --- From: [employer] [id number] To: STU CHURCH DO Sent: September 15, 2024 7:22:55 AM ROPING MACHINE TENDER Subject: Medication Management Due: September 16, 2024 12:07:14 AM ROPING MACHINE TENDER On Hold Pending Signature Dispensed Drug: LORazepam (LORazepam 1 mg oral tablet), TAKE 1 TABLET BY MOUTH THREE TIMES A DAY Quantity: 90 tab(s) Days Supply: 30 Refills: 0 Substitutions Allowed Notes from Pharmacy: Not to exceed 5 additional fills before 02/10/2025 --- From: Lalita Mccarthy [facility]: [id number] Sent: 09/15/2024 09:23:36 EST Subject: FW: Medication Management Not Approved: proposed to provider LORazepam (LORAZEPAM 1 MG TABLET) TAKE 1 TABLET BY MOUTH THREE TIMES A DAY Qty: 90 tab(s) Days Supply: 30 Refills: 0 Substitutions Allowed [facility] Pharm[facility] - [id number] Note from Pharmacy: Not to exceed 5 additional fills before 02/10/2025 Signed by Lalita Mccarthy [facility] 08-17-2024 Note Entered by CHANTELLE CHURCH DO on August 17, 2024 15:48:02 EST From: STU CHURCH DO To: [facility]/pharmacy #[id number] Sent: 08/17/2024 15:48:02 EST Subject: Medication Management Submitted: Complete:atenolol (atenolol 100 mg oral tablet) Signed by STU CHURCH DO 08/17/2024 15:48:00 EST Approved with modifications: atenolol (ATENOLOL 100 MG TABLET) TAKE 1 TABLET BY MOUTH EVERY DAY Qty: 30 tab(s) Days Supply: 30 Refills: 5 Substitutions Allowed Route To Pharmacy - [facility]/pharmacy #[id number] --- From: [employer] STORE [id number] To: STU CHURCH DO Sent: August 14, 2024 11:34:39 PM ROPING MACHINE TENDER Subject: Medication Management Due: August 15, 2024 12:03:40 AM ROPING MACHINE TENDER On Hold Pending Signature Dispensed Drug: atenolol (atenolol 100 mg oral tablet), TAKE 1 TABLET BY MOUTH EVERY DAY Quantity: 30 tab(s) Days Supply: 30 Refills: 5 Substitutions Allowed Notes from Pharmacy: --- [facility] 08-14-2024 Note - From: STU CHURCH DO To: [facility] Clinical Pool ([facility]); Sent: 08/14/2024 07:33:21 EST Subject: FW: Medication Management Due Date/Time: 08/15/2024 07:17:00 EST Caller Name: MUNA VELA; Caller Number: , M --- From: [employer] STORE [id number] To: STU CHURCH DO Sent: August 14, 2024 6:17:23 AM ROPING MACHINE TENDER Subject: Medication Management Due: August 15, 2024 12:03:40 AM ROPING MACHINE TENDER On Hold Pending Signature Dispensed Drug: LORazepam (LORazepam 1 mg oral tablet), TAKE 1 TABLET BY MOUTH THREE TIMES A DAY Quantity: 90 tab(s) Days Supply: 30 Refills: 0 Substitutions Allowed Notes from Pharmacy: Not to exceed 5 additional fills before 01/12/2025 --- From: Lalita Mccarthy To: [facility]/pharmacy #[id number] Sent: 08/14/2024 11:28:16 EST Subject: FW: Medication Management Not Approved: proposed to provider LORazepam (LORAZEPAM 1 MG TABLET) TAKE 1 TABLET BY MOUTH THREE TIMES A DAY Qty: 90 tab(s) Days Supply: 30 Refills: 0 Substitutions Allowed Route To Pharmacy - [facility]/pharmacy #[id number] Note from Pharmacy: Not to exceed 5 additional fills before 01/12/2025 Signed by Lalita Mccarthy [facility] 07-19-2024 Note Entered by CHANTELLE CHURCH DO on July 19, 2024 09:11:22 EST From: STU CHURCH DO To: [facility]/pharmacy #[id number] Sent: 07/19/2024 09:11:22 EST Subject: Medication Management Submitted: Complete:tiZANidine (tiZANidine 4 mg oral tablet) Signed by STU CHURCH DO 07/19/2024 09:11:00 EST Approved with modifications: tiZANidine (TIZANIDINE HCL 4 MG TABLET) TAKE 1 TABLET BY MOUTH EVERY DAY Qty: 30 tab(s) Days Supply: 30 Refills: 2 Substitutions Allowed Route To Pharmacy - [facility]/pharmacy #[id number] --- From: [employer] To: STU CHURCH DO Sent: July 19, 2024 7:19:44 AM ROPING MACHINE TENDER Subject: Medication Management Due: July 20, 2024 1:05:10 AM ROPING MACHINE TENDER On Hold Pending Signature Dispensed Drug: tiZANidine (tiZANidine 4 mg oral tablet), TAKE 1 TABLET BY MOUTH EVERY DAY Quantity: 30 tab(s) Days Supply: 30 Refills: 2 Substitutions Allowed Notes from Pharmacy: --- [facility] 07-16-2024 Note - From: STU CHURCH DO To: [facility] Clinical Pool ([facility]); Sent: 07/16/2024 09:59:41 EST Subject: FW: Medication Management Due Date/Time: 07/17/2024 08:45:00 EST Caller Name: MUNA VELA; Caller Number: H , --- From: [employer] To: STU CHURCH DO Sent: July 16, 2024 7:45:30 AM ROPING MACHINE TENDER Subject: Medication Management Due: July 17, 2024 12:29:40 AM ROPING MACHINE TENDER On Hold Pending Signature Dispensed Drug: LORazepam (LORazepam 1 mg oral tablet), TAKE 1 TABLET BY MOUTH 3 TIMES A DAY Quantity: 90 tab(s) Days Supply: 30 Refills: 0 Substitutions Allowed Notes from Pharmacy: Not to exceed 5 additional fills before 12/13/2024 --- From: Lalita Mccarthy To: [facility]/pharmacy #[id number] Sent: 07/16/2024 10:35:17 EST Subject: FW: Medication Management Not Approved: proposed to provider LORazepam (LORAZEPAM 1 MG TABLET) TAKE 1 TABLET BY MOUTH 3 TIMES A DAY Qty: 90 tab(s) Days Supply: 30 Refills: 0 Substitutions [id number] Note from Pharmacy: Not to exceed 5 additional fills before 12/13/2024 Signed by Lalita Mccarthy [facility] 06-16-2024 Note - From: STU CHURCH DO To: [facility] Clinical Pool ([facility]); Sent: 06/16/2024 10:06:21 EDT Subject: FW: Medication Management Due Date/Time: 06/17/2024 09:53:00 EDT Caller Name: MUNA VELA; Caller Number: Glo , --- From: [employer] STORE [id number] To: STU CHURCH DO Sent: June 16, 2024 8:53:28 AM CDT Subject: Medication Management Due: June 17, 2024 12:12:19 AM CDT On Hold Pending Signature Dispensed Drug: LORazepam (LORazepam 1 mg oral tablet), TAKE 1 TABLET BY MOUTH THREE TIMES A DAY Quantity: 90 tab(s) Days Supply: 30 Refills: 0 Substitutions Allowed Notes from Pharmacy: Not to exceed 5 additional fills before 11/16/2024 --- From: Malgorzata Zamudio MA To: [facility]/pharmacy #[id number] Sent: 06/16/2024 11:03:08 EDT Subject: FW: Medication Management Not Approved: Refill not appropriate, proposal sent to provider LORazepam (LORAZEPAM 1 MG TABLET) TAKE 1 TABLET BY MOUTH THREE TIMES A DAY Qty: 90 tab(s) Days Supply: 30 Refills: 0 Substitutions Allowed [id number] Note from Pharmacy: Not to exceed 5 additional fills before 11/16/2024 Signed by Malgorzata Zamudio MA [facility] 05-19-2024 Note - From: STU CHURCH DO To: [facility] Clinical Pool ([facility]); Sent: 05/19/2024 11:21:35 EDT Subject: FW: Medication Management Due Date/Time: 05/20/2024 09:10:00 EDT Caller Name: MIRIAN MUNA; Caller Number: , --- From: [employer] STORE [id number] To: STU CHURCH DO Sent: May 19, 2024 8:10:21 AM CDT Subject: Medication Management Due: May 20, 2024 12:03:01 AM CDT On Hold Pending Signature Dispensed Drug: LORazepam (LORazepam 1 mg oral tablet), TAKE 1 TABLET BY MOUTH THREE TIMES A DAY Quantity: 90 tab(s) Days Supply: 30 Refills: 0 Substitutions Allowed Notes from Pharmacy: Not to exceed 5 additional fills before 10/13/2024 --- From: Lalita Mccarthy To: [employer]/pharmacy #[id number] Sent: 05/19/2024 17:19:18 EDT Subject: FW: Medication Management Not Approved: proposed to provider LORazepam (LORAZEPAM 1 MG TABLET) TAKE 1 TABLET BY MOUTH THREE TIMES A DAY Qty: 90 tab(s) Days Supply: 30 Refills: 0 Substitutions Allowed Route To Pharmacy - [facility]/pharmacy #[id number] Note from Pharmacy: Not to exceed 5 additional fills before 10/13/2024 Signed by Fabio Lalita [facility] 04-29-2024 Note Entered by CHANTELLE CHURCH DO on April 29, 2024 07:27:22 EDT From: STU CHURCH DO To: [facility]/pharmacy #[id number] Sent: 04/29/2024 07:27:22 EDT Subject: Medication Management Submitted: Complete:tiZANidine (tiZANidine 4 mg oral capsule) Signed by STU CHURCH DO 04/29/2024 07:27:00 EDT Approved with modifications: tiZANidine (TIZANIDINE HCL 4 MG TABLET) TAKE 1 TABLET BY MOUTH EVERY DAY Qty: 30 tab(s) Days Supply: 30 Refills: 2 Substitutions Allowed Route To Pharmacy - [facility]/pharmacy #[id number] --- From: [facility] STORE [id number] To: STU CHURCH DO Sent: April 28, 2024 11:31:37 PM CDT Subject: Medication Management Due: April 29, 2024 2:15:53 AM CDT On Hold Pending Signature Dispensed Drug: tiZANidine (tiZANidine 4 mg oral tablet), TAKE 1 TABLET BY MOUTH EVERY DAY Quantity: 30 tab(s) Days Supply: 30 Refills: 2 Substitutions Allowed Notes from Pharmacy: --- [facility] 04-17-2024 Note - From: STU CHURCH DO To: [facility] Clinical Pool ([facility]); Sent: 04/16/2024 16:01:32 EDT Subject: FW: Medication Management Due Date/Time: 04/17/2024 14:47:00 EDT Caller Name: MUNA VELA; Caller Number: Glo , Manfred --- From: [employer] STORE [id number] To: STU CHURCH DO Sent: April 16, 2024 1:47:29 PM CDT Subject: Medication Management Due: April 17, 2024 12:05:12 AM CDT On Hold Pending Signature Dispensed Drug: LORazepam (LORazepam 1 mg oral tablet), TAKE 1 TABLET BY MOUTH THREE TIMES A DAY Quantity: 90 tab(s) Days Supply: 30 Refills: 0 Substitutions Allowed Notes from Pharmacy: Not to exceed 5 additional fills before 09/13/2024 --- From: Lalita Mccarthy [facility]: [id number] Sent: 04/17/2024 07:56:06 EDT Subject: FW: Medication Management Not Approved: Refill not appropriate, filled 04/16/2024 LORazepam (LORAZEPAM 1 MG TABLET) TAKE 1 TABLET BY MOUTH THREE TIMES A DAY Qty: 90 tab(s) Days Supply: 30 Refills: 0 Substitutions Allowed [facility] - [id number] Note from Pharmacy: Not to exceed 5 additional fills before 09/13/2024 Signed by Lalita Mccarthy [facility] 04-16-2024 Note - From: STU CHURCH DO To: [facility] Clinical [place] ([facility]); Sent: 04/16/2024 09:00:32 EDT Subject: FW: Medication Management Due Date/Time: 04/17/2024 08:58:00 EDT Caller Name: MUNA VELA; Caller Number: Glo , Manfred --- From: [employer] [id number] To: STU CHURCH DO Sent: April 16, 2024 7:58:55 AM CDT Subject: Medication Management Due: April 17, 2024 12:09:18 AM CDT On Hold Pending Signature Dispensed Drug: LORazepam (LORazepam 1 mg oral tablet), TAKE 1 TABLET BY MOUTH THREE TIMES A DAY Quantity: 90 tab(s) Days Supply: 30 Refills: 0 Substitutions Allowed Notes from Pharmacy: Not to exceed 5 additional fills before 09/13/2024 --- From: Malgorzata Zamudio MA To: [facility]/pharmacy #[id number] Sent: 04/16/2024 09:21:13 EDT Subject: FW: Medication Management Not Approved: Refill not appropriate, proposal sent to provider LORazepam (LORAZEPAM 1 MG TABLET) TAKE 1 TABLET BY MOUTH THREE TIMES A DAY Qty: 90 tab(s) Days Supply: 30 Refills: 0 Substitutions Allowed Route To Pharmacy - [facility]/pharmacy #[id number] Note from Pharmacy: Not to exceed 5 additional fills before 09/13/2024 Signed by Malgorzata Zamudio MA [facility] 03-17-2024 Note - From: STU CHURCH DO To: [facility] Clinical Pool ([facility]); Sent: 03/17/2024 09:16:15 EDT Subject: FW: Medication Management Due Date/Time: 03/18/2024 08:56:00 EDT Caller Name: MUNA VELA; Caller Number: Glo , M --- From: [employer] STORE [id number] To: STU CHURCH DO Sent: March 17, 2024 7:56:18 AM CDT Subject: Medication Management Due: March 18, 2024 12:02:45 AM CDT On Hold Pending Signature Dispensed Drug: LORazepam (LORazepam 1 mg oral tablet), TAKE 1 TABLET BY MOUTH THREE TIMES A DAY Quantity: 90 tab(s) Days Supply: 30 Refills: 0 Substitutions Allowed Notes from Pharmacy: Not to exceed 5 additional fills before 08/16/2024 --- From: Lalita Mccarthy [facility]: [id number] Sent: 03/17/2024 10:41:48 EDT Subject: FW: Medication Management Not Approved: proposed to provider LORazepam (LORAZEPAM 1 MG TABLET) TAKE 1 TABLET BY MOUTH THREE TIMES A DAY Qty: 90 tab(s) Days Supply: 30 Refills: 0 Substitutions Allowed Route To Pharmacy - [id number] Note from Pharmacy: Not to exceed 5 additional fills before 08/16/2024 Signed by Lalita Mccarthy [facility] 02-18-2024 Note - From: STU CHURCH DO To: [facility] Clinical Pool ([facility]); Sent: 02/16/2024 19:41:52 EDT Subject: FW: Medication Management Due Date/Time: 02/16/2024 04:06:00 EDT Caller Name: MUNA VELA; Caller Number: Glo , Manfred --- From: [id number] To: STU CHURCH DO Sent: February 15, 2024 3:06:12 AM CDT Subject: Medication Management Due: February 16, 2024 12:02:04 AM CDT On Hold Pending Signature Dispensed Drug: LORazepam (LORazepam 1 mg oral tablet), TAKE 1 TABLET BY MOUTH THREE TIMES A DAY Quantity: 90 tab(s) Days Supply: 30 Refills: 0 Substitutions Allowed Notes from Pharmacy: Not to exceed 5 additional fills before 07/14/2024 --- From: Lalita Mccarthy To: [id number] Sent: 02/18/2024 07:39:10 EDT Subject: FW: Medication Management Not Approved: proposed to provider LORazepam (LORAZEPAM 1 MG TABLET) TAKE 1 TABLET BY MOUTH THREE TIMES A DAY Qty: 90 tab(s) Days Supply: 30 Refills: 0 Substitutions Allowed Route To Pharmacy - [id number] Note from Pharmacy: Not to exceed 5 additional fills before 07/14/2024 Signed by Lalita Mccarthy [facility] Evaluation note No assessment information availa [facility] Work Phone: Summary Purpose Family History No Family History Records FoundNo Family History Records FoundNo Family History Records Found Advance Directives No Advanced Directives Records Found Advance Directive Response Recorded Date/ Time Advance Directives No May 3:56pm Chief Complaint and Reason for Visit Chief Complaint g47.33 Additional Source Comments (unrecognized sect ion and content) No Status Records FoundNo Status Records FoundNo Status Records Found INFORMATION SOURCE (unrecogn ized section and content) DATE CREATED AUTHOR 09/07/2022 Delbert helton DATE CREATED AUTHOR AUTHOR'S ORGANIZ ATION 06/16/2023 [facility] DATE CREATED AUTHOR AUTHOR'S CASSIE ATION 02/06/2025 [facility] Care Teams (unrecognized sec tion and content) Team Status: Active Member Role Status Dates Stu Church , Primary Care Provider Active Team Status: Inactive Member Role Status Dates Stu Church , Primary Care Provider, Attending Pao guerra Active Goals (unrecognized section and content) Goals may be documented in a n alternate section FOR RECORDS PERTAINING TO PATIENTS WHO ARE OR HAVE BEEN ENROLLED IN A CHEMICAL DEPENDENCY/SUBSTANCEABUSE PROGRAM, SOME INFORMATION MAY BE OMITTED. This clinical summary was aggregated from multiple sources. Caution should be exercised in using it in the provision of clinical care. This summary normalizes information from multiple sources, and as a consequence, information in this document may materially change the coding, format and clinical context of patient data. In addition, data may be omitted in some cases. CLINICAL DECISIONS SHOULD BE BASED ON THE PRIMARY CLINICAL RECORDS. [facility]. provides no warranty or guarantee of the accuracy or completeness of information in this document.
[2025-02-10 10:38] LABS: Basophils Percent Auto 0.3 % (0.2-2.0); Eosinophils Absolute Auto 0.1 10^3/uL (0.0-0.7); Hematocrit 41.5 % (42.0-54.0); Hemoglobin 14.2 g/dL (14.0-18.0); Immature Granulocytes Abs Auto 0.02 10^3/uL (0.00-0.03); Immature Granulocytes Pct Auto 0.2 % (0.0-0.5); Lymphocytes Absolute Auto 1.8 10^3/uL (1.2-3.8); Lymphocytes Percent Auto 19.4 % (20.5-60.0); Mean Corpuscular HGB Conc 34.2 g/dL (29.9-35.2); Mean Corpuscular Hemoglobin 30.3 pg (25.9-34.0); Mean Corpuscular Volume 88.5 fL (80.0-94.0); Mean Platelet Volume 9.7 fL (9.5-13.5); Monocytes Absolute Auto 0.6 10^3/uL (0.3-0.8); Monocytes Percent Auto 6.8 % (1.7-12.0); Neutrophils Absolute Auto 6.6 10^3/uL (1.4-6.5); Neutrophils Percent Auto 72.3 % (43.0-75.0); Platelet Count 232 10^3/uL (150-450); Red Blood Count 4.69 10^6/uL (4.70-6.10); Red Cell Distribution Width 13.4 % (11.0-15.0); White Blood Count 9.1 10^3/uL (4.0-11.0)
[2025-02-10 12:08] LABS: Alanine Aminotransferase 44 U/L (16-63); Albumin Globulin Ratio 1.1; Alkaline Phosphatase 56 U/L (46-116); Anion Gap 14.6; Aspartate Amino Transferase 28 U/L (15-37); BUN Creatinine Ratio 18.9; Bilirubin Total 0.5 mg/dL (0.2-1.0); Calcium 9.5 mg/dL (8.5-10.1); Carbon Dioxide 29.3 mmol/L (21.0-32.0); Chloride 103 mmol/L (98-107); Estimated GFR (African America >60 (>=60 mL/min/1.73m^2); Estimated GFR (Non-African Ame >60 (>=60 mL/min/1.73m^2); Globulin 3.6 g/dL; Glucose 90 mg/dL (74-106); Potassium 3.9 mmol/L (3.5-5.1); Sodium 143 mmol/L (136-145); Total Protein 7.6 g/dL (6.4-8.2)
== END 2025-02-10 10:12 | disposition home or self-care (01) ==
PROVIDERS: PCP Family Medicine
DX: F32.0 Major depressive disorder, single episode, mild (principal); F11.20 Opioid dependence, uncomplicated; F12.10 Cannabis abuse, uncomplicated; I10 Essential (primary) hypertension; M54.50 Low back pain, unspecified
CPT/HCPCS: 36415; 80053; 85025

== ENCOUNTER 2025-05-29 04:05 | Emergency (ER) | payer MEDICAID, SELFPAY ==
[2025-05-29 04:09] VITALS: BP 154/93; PULSE 69; TEMP 36.4; O2SAT 98; BMI 39.6
--- NOTE | 2025-05-29 04:27 | ED_ITS ---
HPI HPI - General Adult General Chief complaint: Back Pain/Injury Stated complaint: BACK PAIN Time Seen by Provider: 05/29/25 04:14 Source: patient Mode of arrival: walk-in Limitations: no limitations History of Present Illness HPI narrative: Patient is a 44-year-old male presenting to the emergency department for concerns of Suboxone withdrawal. Patient states that he Sublocade injections which is supplemented by his sublingual Suboxone for opiate use disorder. He states that he ran out of his Suboxone strips 4 days ago, and since then has had worsening withdrawal symptoms. He states that he has been having anxiety, insomnia, and GI symptoms such as nausea. He denies any other substance use or alcohol use. He used to abuse oxycodone, but has not used in over 15 years. He denies any chest pain or shortness of breath. No fevers or chills. He is requesting a dose of Suboxone here in the ED. He has a follow-up appointment with his doctor in 2 weeks for refills on his medication. Related Data Home Medications ?Medication ?Instructions ?Recorded ?Confirmed aripiprazole 5 mg tablet mg 05/29/25 atenolol 100 mg tablet mg 05/29/25 buprenorphine 100 mg/0.5 mL mg subcut 05/29/25 solution,exten.rel.subcutaneous syringe (Sublocade) buprenorphine 8 mg-naloxone 2 mg film 05/29/25 sublingual film clonidine HCl 0.1 mg tablet mg 05/29/25 duloxetine 60 mg capsule,delayed mg PO 05/29/25 release lorazepam 1 mg tablet mg 05/29/25 tizanidine 4 mg tablet mg 05/29/25 Previous Rx's ?Medication ?Instructions ?Recorded buprenorphine 8 mg-naloxone 2 mg 1 film sublingual BID PRN 05/29/25 sublingual film (Suboxone) withdrawal symptoms 3 days #6 ea Allergies Allergy/AdvReac Type Severity Reaction Status Date / Time Sulfa (Sulfonamide AdvReac Severe Unknown Verified 05/29/25 04:14 Antibiotics) Review of Systems ROS Status of ROS 10 or more systems reviewed and unremark able except as noted in history and below PFSH PFSH Social History Little interest or pleasure in doing things: not at all Feeling down, depressed, or hopeless: not at all Exam Narrative Exam Narrative: CONSTITUTIONAL: Patient appears mildly anxious but in no acute distress. Answering questions and following commands appropriate. SKIN: Was warm and dry, no diaphoresis or piloerection. EYES: Sclerae white. PERRLA. EARS, NOSE, THROAT: Moist oral mucosa. No tongue fasciculations. RESPIRATORY: Clear to auscultation bilaterally, no wheezes, crackles, or stridor, no use of accessory muscles CARDIOVASCULAR: Normal rate and regular rhythm. There is no S3, S4, murmur, rub. GASTROINTESTINAL: Abdomen is soft, nontender, nondistended. No rebound tenderness or guarding. MUSCULOSKELETAL: No peripheral edema. No tremors. NEUROLOGIC: Patient is awake and alert. Facies were symmetrical. Constitutional Vital Signs, click to edit/add: Last Vital Signs Temp 97.6 F 05/29/25 04:09 Pulse 69 05/29/25 04:09 Resp 20 05/29/25 04:09 BP 154/93 H 05/29/25 04:09 Pulse Ox 98 05/29/25 04:09 O2 Del Method Room Air 05/29/25 04:09 Course Vital Signs Vital signs: Vital Signs Temperature 97.6 F 05/29/25 04:09 Pulse Rate 69 05/29/25 04:09 Respiratory Rate 20 05/29/25 04:09 Blood Pressure 154/93 H 05/29/25 04:09 Pulse Oximetry 98 05/29/25 04:09 Oxygen Delivery Method Room Air 05/29/25 04:09 Temperature 97.6 F 05/29/25 04:09 Pulse Rate 69 05/29/25 04:09 Respiratory Rate 20 05/29/25 04:09 Blood Pressure 154/93 H 05/29/25 04:09 Pulse Oximetry 98 05/29/25 04:09 Oxygen Delivery Method Room Air 05/29/25 04:09 Medical Decision Making [facility] Narrative Medical decision making narrative: Patient is a 44-year-old male presenting to the emergency department requesting a dose of Suboxone, concerns for withdrawal. He has been getting Sublocade injections which is supplemented by sublingual Suboxone. He ran out of his sublingual Suboxone 4 days ago, which is when his withdrawal symptoms began. His vital signs are within normal limits. He is afebrile and hemodynamically stable. Using the COWS score, he is in mild opiate withdrawal. Patient was given a dose of 8 mg sublingual Suboxone. 30 minutes later, he reports significant improvement of his symptoms. I do believe the patient is stable for discharge at this time. Patient's presentation is most likely consistent with mild opiate withdrawal. They were instructed to follow up with his doctor for further care. Return precautions were given including any new or worsening symptoms. They were given a prescription for Suboxone sublingual 8 mg twice daily as needed for withdrawal symptoms x 6 tablets. Patient understands and agrees to the plan. FINAL IMPRESSION: #Acute mild opiate withdrawal, improved DISPOSITION: Discharged home CONDITION: Good Discharge Plan Discharge Chief Complaint: Back Pain/Injury Clinical Impression: Opioid withdrawal Patient Disposition: Home, Self-Care Time of Disposition Decision: 05:07 Condition: Good Mode of Transportation: Private Vehicle Prescriptions / Home Meds: New buprenorphine-naloxone [Suboxone] 8-2 mg film 1 film sublingual BID PRN (Reason: withdrawal symptoms) 3 Days Qty: 6 0RF No Action clonidine HCl 0.1 mg tablet tizanidine 4 mg tablet atenolol 100 mg tablet lorazepam 1 mg tablet aripiprazole 5 mg tablet duloxetine 60 mg capsule,delayed release(DR/EC) PO buprenorphine-naloxone 8-2 mg film Sublocade 100 mg/0.5 mL solution, extended rel syringe SUBCUT Print Language: Uzbek Instructions: Opioid Withdrawal (ED) Referrals: JENNIFER RIOS [Primary Care Provider, Family Practice] - 1 week
[2025-05-29] MEDS: BUPRENORPHINE HCL/NALOXONE HCL 8-2 MG TABLET SUBL 1 TAB SL (04:31)
--- OUTSIDE RECORDS SUMMARY | 2025-05-29 04:32 | XMS_ITS | CCD ---
Author Organization [facility] Care Team Providers Care Sales Project Administrator Name Role Phone HOUSE, DR PERAZA Primary Care Unavailable EVENS, DR CHUY Bunch Consulting Unavailabl e EVENS, DR CHUY Bunch Attending Unavailabl e EVENS, DR CHUY Bunch Admitting Unavailabl e TRISH, ELHAM PATINO Consulting Unavailable HAY, DR CRISOSTOMO Consulting Unavailable HOUSE, DR PERAZA Primary Care Unavailable HOUSE, DR PERAZA Consulting Unavailable HOUSE, DR PERAZA Attending Unavailable HOUSE, DR PERAZA Admitting Unavailable House, DO Peraza Primary Care Provider House, DO Peraza Attending Provider [phone] House, Stu Attending Unavailable House, Stu Primary Care Unavailable House, Stu Admitting Unavailable HOUSE, STU Kang Primary Care Unavailable HOUSE, DO STU Kang Attending Unavailable HOUSE, STU Kang Primary Care Unavailable HOUSE, DO STU Kang Attending Unavailable HOUSE, STU P Primary Care Unavailable HOUSE, DO STU Kang Attending Unavailable HOUSE, STU Kang Primary Care Unavailable HOUSE, DO STU Kang Attending Unavailable Allergies Allergy Classification Reported Allergen(s) Allergy Type Date of Onset Reaction(s) Facility (1 source) Sulfonamides (Antibiotic) Drug allergy (disorder) 0 [facility] (1 source) sulfa drug; Translations: [sulfa drug] Propensity to adverse reactions to drug (disorder) [facility] Repository Problems Problem Classification Problem Date Documented [...] 08-13-2022 Chronic Other aftercare (1 source) Other correction (current) drug therapy; Translations: [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] Onset: 08-13-2022 Episodic Residual [...] Facil ity Outside [facility] 10-22-2024 Outside Records [id number] [facility] Report on 10-17-2024 Rad - Other Radiology Report [id number] [facility]-2024 Outside Records [id number] 4[facility] GLYCOHEMOGLOBIN A1Con 2021 ADA RECOMMENDATION SEE BELOW Normal [facility] Comment on above: Result Comment: ADA RECOMMENDED LIMIT 4.0 - 6.0 ADA THERAPEUTIC TARGET < 7.0 ACTION SUGGESTED > 7.0 Performed By: #### A 1C #### [facility] [address] [place] [address] Dr. Beverly Jason Glucose [Mass/Vol] 103 mg/dL Normal [facility] Comment on above: Performed By: #### A 1C #### [facility] [address] [place] [address] Dr. Beverly Jason HbA1c (Bld) [Mass fraction] 5.2 % Normal 4.5-6.2 [facility] Comment on above: Performed By: #### A 1C #### [facility] [address] [place] [address] Dr. Beverly Jason ACETAMINOPHENon 08-09-2022 Acetaminophen [Mass/Vol] ug/mL Critically low 10.0-30.0 [facility] Comment on above: Performed By: #### S ALYC, ETH, ACET, CMP #### [facility] [address] [place] [address] Dr. Beverly Jason CBC AUTO DIFFon 08-09-2022 BASO # 0.0 103/ul Normal 0.0-0.1 [facility] Comment on above: Performed By: #### C BC #### [facility] [address] [place] [address] Dr. Beverly Jason Basophils/100 WBC (Bld) 0.3 % Normal 0.2-2.0 [facility] Comment on above: Performed By: #### C BC #### [facility] [address] [place] [address] Dr. Beverly Jason EO # 0.2 103/ul Normal 0.0-0.7 [facility] Comment on above: Performed By: #### C BC #### [facility] [address] [place] [address] Dr. Beverly Jason Eosinophils/100 WBC (Bld) 1.9 % Normal 0.9-7.0 [facility] Comment on above: Performed By: #### C BC #### [facility] [address] [place] [address] Dr. Beverly Jason Erythrocyte distribution width (RBC) [Ratio] 13.6 % Normal 11.0-15.0 [facility] Comment on above: Performed By: #### C BC #### [facility] [address] [place] [address] Dr. Beverly Jason Hematocrit (Bld) [Volume fraction] 40.3 % Critically low 42.0-54.0 [facility] Comment on above: Performed By: #### C BC #### [facility] [address] [place] [address] Dr. Beverly Jason Hemoglobin (Bld) [Mass/Vol] 13.6 g/dL Critically low 14.0-18.0 [facility] Comment on above: Performed By: #### C BC #### [facility] [address] [place] [address] Dr. Beverly Jason IG # 0.06 10e3/ul Critically high 0.00-0.03 [facility] Comment on above: Performed By: #### C BC #### [facility] [address] [place] [address] Dr. Beverly Jason IG % 0.6 % Critically high 0.0-0.5 [facility] Comment on above: Performed By: #### C BC #### [facility] [address] [place] [address] Dr. Beverly Jason LYMPH # 3.2 103/ul Normal 1.2-3.8 [facility] Comment on above: Performed By: #### C BC #### [facility] [address] [place] [address] Dr. Beverly Jason Lymphocytes/100 WBC (Bld) 30.7 % Normal 20.5-60.0 [facility] Comment on above: Performed By: #### C BC #### [facility] [address] [place] [address] Dr. Beverly Jason MANUAL DIFF REQ NO Normal [facility] Comment on above: Performed By: #### C BC #### [facility] [address] [place] [address] Dr. Beverly Jason MCH (RBC) [Entitic mass] 29.4 pg Normal 25.9-34.0 [facility] Comment on above: Performed By: #### C BC #### [facility] [address] [place] [address] Dr. Beverly Jason MCHC (RBC) [Mass/Vol] 33.7 g/dL Normal 29.9-35.2 [facility] Comment on above: Performed By: #### C BC #### [facility] [address] [address] [address] Beverly Jason MCV (RBC) [Entitic vol] 87.0 fL Normal 80.0-94.0 [facility] Comment on above: Performed By: #### C BC #### [facility] [address] [address] [address] Beverly Jason MONO # 0.7 103/ul Normal 0.3-0.8 [facility] Comment on above: Performed By: #### C BC #### [facility] [address] [address] [address] Beverly Jason Monocytes/100 WBC (Bld) 6.9 % Normal 1.7-12.0 [facility] Comment on above: Performed By: #### C BC #### [facility] [address] [address] [address] Beverly Jason NEUT # 6.2 103/ul Normal 1.4-6.5 [facility] Comment on above: Performed By: #### C BC #### [facility] [address] [address] [address] Beverly Jason Neutrophils/100 WBC (Bld) 59.6 % Normal 43.0-75.0 [facility] Comment on above: Performed By: #### C BC #### [facility] [address] [address] [address] Beverly Jason Platelet mean volume (Bld) [Entitic vol] 9.8 fL Normal 9.5-13.5 [facility] Comment on above: Performed By: #### C BC #### [facility] [address] [address] [address] Beverly Jason PLT 235 103/ul Normal 150-450 [facility] Comment on above: Performed By: #### C BC #### [facility] [address] [id number] Beverly Jason RBC 4.63 106/ul Critically low 4.70-6.10 [facility] Comment on above: Performed By: #### C BC #### [facility] [address] [place] [address] Dr. Beverly Jason WBC 10.5 103/ul Normal 4.0-11.0 [facility] Comment on above: Performed By: #### C BC #### [facility] [address] [place] [address] Dr. Beverly Jason Covid-19 PCR ([facility])on 07-13 SARS-CoV-2 (COVID-19) RNA POP+probe Ql (Unsp spec) Not detected Normal NOT DETECTED [facility] Comment on above: Result Comment: When [...] for this test is supported by the Photographer Aerial of Health and Human Service's declaration that [...] used). Performed By: #### C VDTBH #### [facility] [address] [place] [address] Dr. Beverly Jason DRUG SCREEN RAPID (URINE)on 08-09-2022 AMP Positive Abnormal NEGATIVE [facility] Comment on above: Performed By: #### D RUGRPD #### [facility] [address] [place] [address] Dr. Beverly Jason BAR Negative Normal NEGATIVE [facility] Comment on above: Performed By: #### D RUGRPD #### [facility] [address] [place] [address] Dr. Beverly Jsaon BUP Positive Abnormal NEGATIVE [facility] Comment on above: Performed By: #### D RUGRPD #### [facility] [address] [place] [address] Dr. Beverly Jason BZO Positive Abnormal NEGATIVE [facility] Comment on above: Performed By: #### D RUGRPD #### [facility] [address] [place] [address] Dr. Beverly Jason ROQUE Negative Normal NEGATIVE [facility] Comment on above: Performed By: #### D RUGRPD #### [facility] [address] [place] [address] Dr. Beverly Jason CUT-OFFS SEE BELOW Normal [facility] Comment on above: Result Comment: AMP (Amphetamine): 500ng/mL, BAR (Barbituates): 200 ng/mL, BZO (Benzodiazepines): 150 ng/mL, BUP (Buprenorphine): 10 ng/mL, ROQUE (Cocaine): 150 ng/mL, mAMP (Methamphetamine): 500 ng/mL, MTD (Methadone): 200 ng/mL, OPI (Opiates): 100 ng/mL, OXY (Oxycodone): 100 ng/mL, PCP (Phencyclidine): 25 ng/mL, PPX (Propoxyphene): 300 ng/mL, THC (Cannabinoids): 50 ng/mL, TCA (Trycyclic Antidepressants): 300 ng/mL Performed By: #### D RUGRPD #### [facility] [address] [place] [address] Dr. Beverly Jason DRUG CUT HEADER DRUG CLASS TEST SYSTEM CUT-OFF CONCENTRATIONS ARE FOLLOWS: Normal [facility] Comment on above: Performed By: #### D RUGRPD #### [facility] [address] [place] [address] Dr. Beverly Jason mAMP Negative Normal NEGATIVE [facility] Comment on above: Performed By: #### D RUGRPD #### [facility] [address] [place] [address] Dr. Beverly Jason MTD Negative Normal NEGATIVE [facility] Comment on above: Performed By: #### D RUGRPD #### [facility] [address] [place] [address] Dr. Beverly Jason OPI Negative Normal NEGATIVE [facility] Comment on above: Performed By: #### D RUGRPD #### [facility] [address] [address] [address] Beverly Jason OXY Negative Normal NEGATIVE [facility] Comment on above: Performed By: #### D RUGRPD #### [facility] [address] [address] [address] Beverly Jason PCP Negative Normal NEGATIVE [facility] Comment on above: Performed By: #### D RUGRPD #### [facility] [address] [address] [address] Beverly Jason PPX Negative Normal NEGATIVE [facility] Comment on above: Performed By: #### D RUGRPD #### [facility] [address] [place] [address] Dr. Beverly Jason TCA Negative Normal NEGATIVE [facility] Comment on above: Performed By: #### D RUGRPD #### [facility] [address] [place] [address] Dr. Beverly Jason THC Positive Abnormal NEGATIVE [facility] Comment on above: Performed By: #### D RUGRPD #### [facility] [address] [place] [address] Dr. Beverly Jason ETHANOL (BLD ALC)on 08-09-20 22 ALC NOTE NOTE: 80 mg/dl is the legal limit for a blood alcohol level Normal [facility] Comment on above: Performed By: #### S ALYC, ETH, ACET, CMP #### [facility] [address] [place] [address] Dr. Beverly Jason Ethanol [Mass/Vol] mg/dL Normal [facility] Comment on above: Performed By: #### S ALYC, ETH, ACET, CMP #### [facility] [address] [place] [address] Dr. Beverly Jason PROF 14(COMP METB)on 022 Albumin [Mass/Vol] 4.3 g/dL Normal 3.4-5.0 [facility] Comment on above: Performed By: #### S ALYC, ETH, ACET, CMP #### [facility] [address] [place] [address] Dr. Beverly Jason Albumin/Globulin [Mass ratio] 1.3 {ratio} Normal [facility] Comment on above: Performed By: #### S ALYC, ETH, ACET, CMP #### [facility] [address] [address] [address] Beverly Jason ALP [Catalytic activity/Vol] 57 U/L Normal 46-116 [facility] Comment on above: Performed By: #### S ALYC, ETH, ACET, CMP #### [facility] [address] [place] [address] Dr. Beverly Jason ALT [Catalytic activity/Vol] 45 U/L Normal 16-63 [facility] Comment on above: Performed By: #### S ALYC, ETH, ACET, CMP #### [facility] [address] [place] [address] Dr. Beverly Jason Anion gap [Moles/Vol] 12.9 mmol/L Normal [facility] Comment on above: Performed By: #### S ALYC, ETH, ACET, CMP #### [facility] [address] [place] [address] Dr. Beverly Jason AST [Catalytic activity/Vol] 16 U/L Normal 15-37 [facility] Comment on above: Performed By: #### S ALYC, ETH, ACET, CMP #### [facility] [address] [place] [address] Dr. Beverly Jason Bilirubin [Mass/Vol] 0.1 mg/dL Critically low 0.2-1.0 [facility] Comment on above: Performed By: #### S ALYC, ETH, ACET, CMP #### [facility] [address] [place] [address] Dr. Beverly Jason Calcium [Mass/Vol] 9.0 mg/dL Normal 8.5-10.1 [facility] Comment on above: Performed By: #### S ALYC, ETH, ACET, CMP #### [facility] [address] [place] [address] Dr. Beverly Jason Chloride [Moles/Vol] 105 mmol/L Normal 98-107 [facility] Comment on above: Performed By: #### S ALYC, ETH, ACET, CMP #### [facility] [address] [address] [address] Beverly Jason CO2 [Moles/Vol] 28.0 mmol/L Normal 21.0-32.0 [facility] Comment on above: Performed By: #### S ALYC, ETH, ACET, CMP #### [facility] [address] [place] [address] Dr. Beverly Jason Creatinine [Mass/Vol] 1.07 mg/dL Normal 0.70-1.30 [facility] Comment on above: Performed By: #### S ALYC, ETH, ACET, CMP #### [facility] [address] [place] [address] Dr. Beverly Jason EGFR-AF CENTRAL AFRICAN >60 Normal >=60 [facility] Comment on above: Performed By: #### S ALYC, ETH, ACET, CMP #### [facility] [address] [place] [address] Dr. Beverly Jason EGFR-NON AF CENTRAL AFRICAN >60 Normal >=60 [facility] Comment on above: Performed By: #### S ALYC, ETH, ACET, CMP #### [facility] [address] [place] [address] Dr. Beverly Jason Globulin (S) [Mass/Vol] 3.4 g/dL Normal [facility] Comment on above: Performed By: #### S ALYC, ETH, ACET, CMP #### [facility] [address] [place] [address] Dr. Beverly Jason Glucose [Mass/Vol] 102 mg/dL Normal 74-106 [facility] Comment on above: Performed By: #### S ALYC, ETH, ACET, CMP #### [facility] [address] [place] [address] Dr. Beverly Jason Potassium [Moles/Vol] 3.9 mmol/L Normal 3.5-5.1 [facility] Comment on above: Performed By: #### S ALYC, ETH, ACET, CMP #### [facility] [address] [place] [address] Dr. Beverly Jason Protein [Mass/Vol] 7.7 g/dL Normal 6.4-8.2 [facility] Comment on above: Performed By: #### S ALYC, ETH, ACET, CMP #### [facility] [address] [address] [address] Beevrly Jason Sodium [Moles/Vol] 142 mmol/L Normal 136-145 [facility] Comment on above: Performed By: #### S ALYC, ETH, ACET, CMP #### [facility] [address] [address] [address] Beverly Jason Urea nitrogen [Mass/Vol] 23.0 mg/dL Critically high 7.0-18.0 [facility] Comment on above: Performed By: #### S ALYC, ETH, ACET, CMP #### [facility] [address] [address] [address] Beverly Jason Urea nitrogen/Creatinine [Mass ratio] 21.5 mg/mg Normal [facility] Comment on above: Performed By: #### S ALYC, ETH, ACET, CMP #### [facility] [address] [address] [address] Beverly Jason SALICYLATEon 08-09-2022 SALICYLATE <2.8 Normal <=19.9 [facility] Comment on above: Performed By: #### S ALYC, ETH, ACET, CMP #### [facility] [address] [address] [address] Beverly Jason TROPONIN, HIGH SENSITIVITYon 08-09-2022 HSTROP 12.2 pg/mL Normal 4.0-76.1 [facility] Comment on above: Result Comment: CUT- OFF POINTS HAVE BEEN ESTABLISHED BASED ON THE FOURTH UNIVERSAL DEFINITIONS OF MYOCARDIAL INFARCTION. THE UPPER REFERENCE LIMIT (URL) OF TROPONIN, DEFINED THE 99TH PERCENTILE OF cTnI DISTRIBUTION IN A REFERENCE POPULATION, HAS BEEN CONFIRMED THE DECISION THRESHOLD FOR CO DIAGNOSIS. Performed By: #### H STROPN #### [facility] [address] [address] [address] Beverly Jason Encounters Encounter Date Encounter Type Care Provider Facility Start: 04-29-2025 ambulatory STU Thomason y:[facility] Start: 01-26-2025 ambulatory STU CHURCH Facilit y:[facility] Start: 10-27-2024 End: 10-27-2024 ambulatory STU CHURCH Facility:[facility] Start: 07-29-2024 End: 07-29-2024 ambulatory STU CHURCH Facility:[facility] Start: 06-12-2023 End: 06-12-2023 ambulatory Stu Church Facility:[facility] Start: 06-12-2023 End: 06-12-2023 ambulatory Stu Church Work Phone: [facility] Work Phone: Start: 06-12-2023 End: 06-12-2023 Patient encounter procedure DO Stu Church Work Phone: [facility] Work Phone: Start: 08-31-2022 End: 09-01-[address] STU CHURCH Facility:[facility] Start: 08-09-2022 End: 08-10-[address] STU CHURCH Facility: Payers Date Payer Category Payer Self-pay 2022 Medicaid [id number] 1980 Unknown [id number] 2.16.84 [id number] 1980 Unknown [id number] 2.16.84 [id number] 1982 Unknown [id number] 2.16.8 [id number] 1982 Unknown [id number] 2.16.8 [id number] 1982 Unknown [id number] 2.16.8 [id number] 1982 Unknown [id number] 2.16.8 [id number] 1959 Unknown [id number] Medicaid [place] Advantage [id number] 801 [id number] Unknown [id number] 2.16.8 [id number] Social History Date Type Detail Facility Tobacco smoking stat [facility] Unknown if ever smoked [facility] Work Phone: Start: 1980 Sex Assigned At Male F [facility] Clinical Notes 05-19-2024 to 05-14-2025 Note Date & Type Note Facility 05-14-2025 Note Entered by CHANTELLE CHURCH DO on May 14, 2025 07:29:30 EDT From: STU CHURCH DO To: [facility]/pharmacy #[id number] Sent: 05/14/2025 07:29:30 EDT Subject: Medication Management Submitted: Complete:metFORMIN (metFORMIN 500 mg oral tablet) Signed by STU CHURCH DO 05/14/2025 07:29:00 EDT Approved with modifications: metFORMIN (METFORMIN HCL 500 MG TABLET) TAKE 1 TABLET BY MOUTH TWICE A DAY Qty: 180 tab(s) Days Supply: 90 Refills: 1 Substitutions Allowed Route To Pharmacy - [facility]/pharmacy #[id number] --- From: [id number] To: STU CHURCH DO Sent: May 13, 2025 11:24:58 PM CDT Subject: Medication Management Due: May 14, 2025 12:08:35 AM CDT On Hold Pending Signature Dispensed Drug: metFORMIN (metFORMIN 500 mg oral tablet), TAKE 1 TABLET BY MOUTH TWICE A DAY Quantity: 180 tab(s) Days Supply: 90 Refills: 1 Substitutions Allowed Notes from Pharmacy: --- [facility] 05-03-2025 Note Entered by CHANTELLE CHURCH DO on May 03, 2025 19:48:54 EDT From: STU CHURCH DO To: [facility]/pharmacy #[id number] Sent: 05/03/2025 19:48:54 EDT Subject: Medication Management Approved with modifications: [facility] ([facility] TRUE METRIX GLUC TEST STRP) TO USE FOR TESTING OF BLOOD SUGARS ONCE DAILY. Qty: 100 Strip Days Supply: 100 Refills: 1 Substitutions Allowed Route To Pharmacy - [facility]/pharmacy #[id number] --- From: [id number] To: STU CHURCH DO Sent: May 03, 2025 6:32:37 AM CDT Subject: Medication Management Due: May 04, 2025 1:38:51 AM CDT On Hold Pending Signature Dispensed Drug: [facility] TRUE METRIX GLUC TEST STRP, TO USE FOR TESTING OF BLOOD SUGARS ONCE DAILY. Quantity: 100 Strip Days Supply: 100 Refills: 0 Substitutions Allowed Notes from Pharmacy: --- [facility] 04-26-2025 Note Entered by CHANTELLE CHURCH DO on April 26, 2025 09:22:26 EDT From: STU CHURCH DO To: [facility]/pharmacy #[id number] Sent: 04/26/2025 09:22:26 EDT Subject: Medication Management Submitted: Complete:lisinopril (lisinopril 20 mg oral tablet) Signed by STU CHURCH DO 04/26/2025 09:22:00 EDT Approved with modifications: lisinopril (LISINOPRIL 20 MG TABLET) TAKE 1 TABLET BY MOUTH EVERY DAY Qty: 30 tab(s) Days Supply: 30 Refills: 5 Substitutions Allowed Route To Pharmacy - [facility]/pharmacy #[id number] --- From: [id number] To: STU CHURCH DO Sent: April 26, 2025 6:40:45 AM CDT Subject: Medication Management Due: April 27, 2025 12:19:23 AM CDT On Hold Pending Signature Dispensed Drug: lisinopril (lisinopril 20 mg oral tablet), TAKE 1 TABLET BY MOUTH EVERY DAY Quantity: 30 tab(s) Days Supply: 30 Refills: 5 Substitutions Allowed Notes from Pharmacy: --- [facility] 03-30-2025 Note Entered by CHANTELLE CHURCH DO on March 30, 2025 07:17:54 EDT From: STU CHURCH DO To: [facility]/pharmacy #[id number] Sent: 03/30/2025 07:17:54 EDT Subject: Medication Management Submitted: Complete:tiZANidine (tiZANidine 4 mg oral tablet) Signed by STU CHURCH DO 03/30/2025 07:17:00 EDT Approved with modifications: tiZANidine (TIZANIDINE HCL 4 MG TABLET) TAKE 1 TABLET BY MOUTH EVERY DAY Qty: 30 tab(s) Days Supply: 30 Refills: 2 Substitutions Allowed Route To Pharmacy - [facility]/pharmacy #[id number] --- From: [id number] To: STU CHURCH DO Sent: March 29, 2025 11:26:03 PM CDT Subject: Medication Management Due: March 30, 2025 12:06:27 AM CDT On Hold Pending Signature Dispensed Drug: tiZANidine (tiZANidine 4 mg oral tablet), TAKE 1 TABLET BY MOUTH EVERY DAY Quantity: 30 tab(s) Days Supply: 30 Refills: 2 Substitutions Allowed Notes from Pharmacy: --- [facility] 02-23-2025 Note Entered by CHANTELLE CHURCH DO on February 23, 2025 07:36:29 EDT From: [facility]CH [id number]: 02/23/2025 07:36:29 EDT Subject: Medication Management Submitted: Complete:hydroCHLOROthiazide (hydroCHLOROthiazide 25 mg oral tablet) Signed by STU CHURCH DO 02/23/2025 07:36:00 EDT Approved with modifications: hydroCHLOROthiazide (HYDROCHLOROTHIAZIDE 25 MG TAB) TAKE 1 TABLET BY MOUTH EVERY DAY Qty: 30 tab(s) Days Supply: 30 Refills: 5 Substit[id number] To: STU CHURCH DO Sent: February 22, 2025 6:33:47 AM CDT Subject: Medication Management Due: February 23, 2025 2:04:15 AM CDT On Hold Pending Signature Dispensed Drug: hydroCHLOROthiazide (hydroCHLOROthiazide 25 mg oral tablet), TAKE 1 TABLET BY MOUTH EVERY DAY Quantity: 30 tab(s) Days Supply: 30 Refills: 1 Substitutions Allowed Notes from Pharmacy: --- [facility] 02-02-2025 Note Entered by CHANTELLE CHURCH DO on February 02, 2025 10:35:46 EDT From: STU CHURCH DO [id number] Sent: 02/02/2025 10:35:46 EDT Subject: Medication Management Submitted: Complete:atenolol (atenolol 100 mg oral tablet) Signed by STU CHURCH DO 02/02/2025 10:35:00 EDT Approved with modifications: atenolol (ATENOLOL 100 MG TABLET) TAKE 1 TABLET BY MOUTH EVERY DAY Qty: 30 tab(s) Days Supply: 30 Refills: 5 Substitutions Allowed Route To Pharmacy - [facility]/pharmacy #[id number] --- From: [id number] To: STU CHURCH DO Sent: February 01, 2025 6:33:12 AM CDT Subject: Medication Management Due: February 02, 2025 12:04:43 AM CDT On Hold Pending Signature Dispensed Drug: atenolol (atenolol 100 mg oral tablet), TAKE 1 TABLET BY MOUTH EVERY DAY Quantity: 30 tab(s) Days Supply: 30 Refills: 5 Substitutions Allowed Notes from Pharmacy: --- [facility] 01-26-2025 Note Entered by CHANTELLE CHURCH DO on January 26, 2025 07:29:31 EDT From: STU CHURCH DO To: [facility]/pharm[facility] #[id number] Sent: 01/26/2025 07:29:31 EDT Subject: Medication Management Submitted: Complete:DULoxetine (DULoxetine 60 mg oral delayed release capsule) Signed by STU CHURCH DO 01/26/2025 07:29:00 EDT Approved with modifications: DULoxetine (DULOXETINE HCL DR 60 MG CAP) TAKE 1 CAPSULE BY MOUTH EVERY DAY Qty: 30 cap(s) Days Supply: 30 Refills: 5 Substitutions Allowed Route To Pharmacy - [facility]/pharmacy #[id number] --- From: [facility] To: STU CHURCH DO Sent: January 25, 2025 6:33:25 AM CDT Subject: Medication Management Due: January 26, 2025 12:34:47 AM CDT On Hold Pending Signature Dispensed Drug: DULoxetine (DULoxetine 60 mg oral delayed release capsule), TAKE 1 CAPSULE BY MOUTH EVERY DAY Quantity: 30 cap(s) Days Supply: 30 Refills: 2 Substitutions Allowed Notes from Pharmacy: --- [facility] 01-15-2025 Note - From: STU CHURCH DO To: [facility] Clinical Pool ([facility]); Sent: 01/15/2025 07:28:16 EDT Subject: FW: Medication Management Due Date/Time: 01/15/2025 18:36:00 EDT Caller Name: MUNA VELA; Caller Number: , --- From: [employer] To: STU CHURCH DO Sent: January 14, [...] before 06/14/2025 --- From: Lalita Pagan To: [facility]/pharmacy #[id number] Sent: 01/15/2025 07:45:21 EDT Subject: FW: Medication Management Not Approved: proposed to provider LORazepam (LORAZEPAM 1 MG TABLET) TAKE 1 TABLET BY MOUTH THREE TIMES A DAY Qty: 90 tab(s) Days Supply: 30 Refills: 0 Substitutions Allowed Route To Pharmacy - [facility]/pharmacy #[id number] Note from Pharmacy: Not to exceed 5 additional fills before 06/14/2025 Signed by Lalita Pagan [facility] 01-04-2025 Note Entered by CHANTELLE CHURCH DO on January 04, 2025 19:06:42 EDT From: STU [facility]URCH [id number] Sent: 01/04/2025 19:06:42 EDT Subject: Medication Management Submitted: Complete:tiZANidine (tiZANidine 4 mg oral tablet) Signed by STU CHURCH DO 01/04/2025 19:06:00 EDT Approved with modifications: tiZANidine (TIZANIDINE HCL 4 MG TABLET) TAKE 1 TABLET BY MOUTH EVERY DAY Qty: 30 tab(s) Days Supply: 30 Refills: 2 Substitutions Allowed Route To Pharmacy - [facility]/pharmacy #[id number] --- From: [facility] STORE [id number] To: STU CHURCH DO Sent: January 04, 2025 6:47:23 AM CDT Subject: Medication Management Due: January 05, 2025 12:13:09 AM CDT On Hold Pending Signature Dispensed Drug: tiZANidine (tiZANidine 4 mg oral tablet), TAKE 1 TABLET BY MOUTH EVERY DAY Quantity: 30 tab(s) Days Supply: 30 Refills: 2 Substitutions Allowed Notes from Pharmacy: --- [facility] 12-25-2024 Note Entered by CHANTELLE CHURCH DO on December 25, 2024 07:29:43 EDT From: STU CHURCH DO To: [facility] #[id number] Sent: 12/25/2024 07:29:43 EDT Subject: Medication Management Submitted: Complete:hydroCHLOROthiazide (hydroCHLOROthiazide 25 mg oral tablet) Signed by STU CHURCH DO 12/25/2024 07:29:00 EDT Approved hydroCHLOROthiazide (HYDROCHLOROTHIAZIDE 25 MG TAB) TAKE 1 TABLET BY MOUTH EVERY DAY Qty: 30 tab(s) Days Supply: 30 Refills: 1 Substitutions Allowed Route To Pharmacy - [facility] #[id number] --- From: [facility] ST[id number] To: STU CHURCH DO Sent: December 24, 2024 11:25:25 PM CDT Subject: Medication Management Due: December 25, 2024 12:05:31 AM CDT On Hold Pending Signature Dispensed Drug: hydroCHLOROthiazide (hydroCHLOROthiazide 25 mg oral tablet), TAKE 1 TABLET BY MOUTH EVERY DAY Quantity: 30 tab(s) Days Supply: 30 Refills: 1 Substitutions Allowed Notes from Pharmacy: --- [facility] 12-15-2024 Note - From: STU CHURCH DO To: [facility] Clinical Pool ([facility]); Sent: 12/15/2024 08:37:39 EDT Subject: FW: Medication Management Due Date/Time: 12/15/2024 07:08:00 EDT Caller Name: MIRIAN MUNA; Caller Number: , --- From: [id number] To: STU CHURCH DO Sent: December 12, [...] before 05/10/2025 --- From: Lalita Pagan To: [facility] #[id number] Sent: 12/15/2024 09:36:01 EDT Subject: FW: Medication Management Not Approved: proposed to provider LORazepam (LORAZEPAM 1 MG TABLET) TAKE 1 TABLET BY MOUTH THREE TIMES A DAY Qty: 90 tab(s) Days Supply: 30 Refills: 0 Substitutions Allowed Route To Pharmacy - [facility] #[id number] Note from Pharmacy: Not to exceed 5 additional fills before 05/10/2025 Signed by Ej Lalita [facility] 11-13-2024 Note Entered by CHANTELLE CHURCH DO on November 13, 2024 07:29:16 EST From: STU CHURCH DO To: [facility] #[id number] Sent: 11/13/2024 07:29:16 EST Subject: Medication Management Submitted: Complete:metFORMIN (metFORMIN 500 mg oral tablet) Signed by STU CHURCH DO 11/13/2024 07:29:00 EST Approved with modifications: metFORMIN (METFORMIN HCL 500 MG TABLET) TAKE 1 TABLET BY MOUTH TWICE A DAY Qty: 180 tab(s) Days Supply: 90 Refills: 1 Substitutions Allowed Route To Pharmacy - [facility] #[id number] --- From: [employer] To: STU CHURCH DO Sent: November 12, 2024 11:23:10 PM MERCHANDISING EXECUTION ASSOCIATE Subject: Medication Management Due: November 13, 2024 11:38:58 AM MERCHANDISING EXECUTION ASSOCIATE On Hold Pending Signature Dispensed Drug: metFORMIN (metFORMIN 500 mg oral tablet), TAKE 1 TABLET BY MOUTH TWICE A DAY Quantity: 180 tab(s) Days Supply: 90 Refills: 1 Substitutions Allowed Notes from Pharmacy: --- [facility] 11-10-2024 Note - From: STU CHURCH DO To: [facility] Clinical Pool ([facility]); Sent: 11/10/2024 07:46:35 EST Subject: FW: Medication Management Due Date/Time: 11/11/2024 07:13:00 EST Caller Name: MUNA VELA; Caller Number: , --- From: [employer] To: STU CHURCH DO Sent: November 10, 2024 6:13:19 AM MERCHANDISING EXECUTION ASSOCIATE Subject: Medication Management Due: November 11, 2024 12:02:49 AM MERCHANDISING EXECUTION ASSOCIATE On Hold Pending Signature Dispensed Drug: LORazepam (LORazepam 1 mg oral tablet), TAKE 1 TABLET BY MOUTH THREE TIMES A DAY Quantity: 90 tab(s) Days Supply: 30 Refills: 0 Substitutions Allowed Notes from Pharmacy: Not to exceed 5 additional fills before 04/11/2025 --- From: Malgorzata Zamudio MA To: [facility] #[id number] Sent: 11/10/2024 16:27:42 EST Subject: FW: Medication Management Not Approved: Refill not appropriate, proposal sent to provider LORazepam (LORAZEPAM 1 MG TABLET) TAKE 1 TABLET BY MOUTH THREE TIMES A DAY Qty: 90 tab(s) Days Supply: 30 Refills: 0 Substitutions Allowed Route To Pharmacy - [facility] #[id number] Note from Pharmacy: Not to exceed 5 additional fills before 04/11/2025 Signed by Malgorzata Zamudio MA [facility] 10-23-2024 Note Entered by CHANTELLE CHURCH DO on October 23, 2024 07:38:32 EST From: STU CHURCH DO To: [facility] #[id number] Sent: 10/23/2024 07:38:32 EST Subject: [...] 5 Substitutions Allowed Route To Pharmacy - [facility] #[id number] --- From: [id number] To: STU CHURCH DO Sent: October 22, 2024 11:40:42 PM MERCHANDISING EXECUTION ASSOCIATE Subject: Medication Management Due: October 23, 2024 12:19:25 AM MERCHANDISING EXECUTION ASSOCIATE On Hold Pending Signature Dispensed Drug: lisinopril (lisinopril 20 mg oral tablet), TAKE 1 TABLET BY MOUTH EVERY DAY Quantity: 30 tab(s) Days Supply: 30 Refills: 2 Substitutions Allowed Notes from Pharmacy: --- [facility] 10-19-2024 Note Entered by CHANTELLE CHURCH DO on October 19, 2024 17:52:18 EST From: STU CHURCH DO To: [id number] Sent: 10/19/2024 17:52:18 EST Subject: Medication Management Submitted: Complete:DULoxetine (Cymbalta 60 mg oral delayed release capsule) Signed by STU CHURCH DO 10/19/2024 17:52:00 EST Approved DULoxetine (DULOXETINE HCL DR 60 MG CAP) TAKE 1 CAPSULE BY MOUTH EVERY DAY Qty: 30 cap(s) Days Supply: 30 Refills: 2 Substitutions Allowed Route To Pharmacy - [id number] --- From: [id number] To: STU CHURCH DO Sent: October 19, 2024 6:33:03 AM MERCHANDISING EXECUTION ASSOCIATE Subject: Medication Management Due: October 20, 2024 12:12:00 AM MERCHANDISING EXECUTION ASSOCIATE On Hold Pending Signature Dispensed Drug: DULoxetine (DULoxetine 60 mg oral delayed release capsule), TAKE 1 CAPSULE BY MOUTH EVERY DAY Quantity: 30 cap(s) Days Supply: 30 Refills: 2 Substitutions Allowed Notes from Pharmacy: --- [facility] 10-13-2024 Note - From: STU CHURCH DO To: [facility] Clinical Pool ([facility]); Sent: 10/13/2024 08:37:27 EST Subject: FW: Medication Management Due Date/Time: 10/14/2024 08:20:00 EST Caller Name: MUNA VELA; Caller Number: , --- From: [id number] To: STU CHURCH DO Sent: October 13, 2024 7:20:26 AM MERCHANDISING EXECUTION ASSOCIATE Subject: Medication Management Due: October 14, 2024 12:21:37 AM MERCHANDISING EXECUTION ASSOCIATE On Hold Pending Signature Dispensed Drug: LORazepam (LORazepam 1 mg oral tablet), TAKE 1 TABLET BY MOUTH THREE TIMES A DAY Quantity: 90 tab(s) Days Supply: 30 Refills: 0 Substitutions Allowed Notes from Pharmacy: Not to exceed 5 additional fills before 02/10/2025 --- From: Lalita Mccarthy To: [facility]/pharmacy #[id number] Sent: 10/13/2024 08:41:47 EST Subject: FW: Medication Management Not Approved: proposed to provider LORazepam (LORAZEPAM 1 MG TABLET) TAKE 1 TABLET BY MOUTH THREE TIMES A DAY Qty: 90 tab(s) Days Supply: 30 Refills: 0 Substitutions Allowed Route To Pharmacy - [facility]/pharmacy #[id number] Note from Pharmacy: Not to exceed 5 additional fills before 02/10/2025 Signed by Fabio [facility] 10-13-2024 Note Entered by CHANTELLE CHURCH DO on October 13, 2024 07:19:44 EST From: STU CHURCH DO To: [facility] #[id number] Sent: 10/13/2024 07:19:44 EST Subject: Medication Management Submitted: Complete:tiZANidine (tiZANidine 4 mg oral tablet) Signed by STU CHURCH DO 10/13/2024 07:19:00 EST Approved with modifications: tiZANidine (TIZANIDINE HCL 4 MG TABLET) TAKE 1 TABLET BY MOUTH EVERY DAY Qty: 30 tab(s) Days Supply: 30 Refills: 2 Substitutions Allowed Route To Pharmacy - [facility] #[id number] --- From: [employer] To: STU CHURCH DO Sent: October 12, 2024 6:35:09 AM MERCHANDISING EXECUTION ASSOCIATE Subject: Medication Management Due: October 13, 2024 12:02:49 AM MERCHANDISING EXECUTION ASSOCIATE On Hold Pending Signature Dispensed Drug: tiZANidine (tiZANidine 4 mg oral tablet), TAKE 1 TABLET BY MOUTH EVERY DAY Quantity: 30 tab(s) Days Supply: 30 Refills: 2 Substitutions Allowed Notes from Pharmacy: --- [facility] 09-15-2024 Note - From: STU CHURCH DO To: [facility] Clinical Pool ([facility] Sent: 09/15/2024 08:49:57 EST Subject: FW: Medication Management Due Date/Time: 09/16/2024 08:22:00 EST Caller Name: MUNA VELA; Caller Number: , --- From: [employer] To: STU CHURCH DO Sent: September 15, 2024 7:22:55 AM MERCHANDISING EXECUTION ASSOCIATE Subject: Medication Management Due: September 16, 2024 12:07:14 AM MERCHANDISING EXECUTION ASSOCIATE On Hold Pending Signature Dispensed Drug: LORazepam (LORazepam 1 mg oral tablet), TAKE 1 TABLET BY MOUTH THREE TIMES A DAY Quantity: 90 tab(s) Days Supply: 30 Refills: 0 Substitutions Allowed Notes from Pharmacy: Not to exceed 5 additional fills before 02/10/2025 --- From: Lalita Mccarthy To: [facility]/pharm[facility] #[id number] Sent: 09/15/2024 09:23:36 EST Subject: FW: Medication Management Not Approved: proposed to provider LORazepam (LORAZEPAM 1 MG TABLET) TAKE 1 TABLET BY MOUTH THREE TIMES A DAY Qty: 90 tab(s) Days Supply: 30 Refills: 0 Substitutions Allowed Route To Pharmacy - [facility] #[id number] Note from Pharmacy: Not to exceed 5 additional fills before 02/10/2025 Signed by Lalita Mccarthy [facility] 08-17-2024 Note Entered by CHANTELLE CHURCH DO on August 17, 2024 15:48:02 EST From: STU CHURCH DO To: [facility]/pharm[facility] #[id number] Sent: 08/17/2024 15:48:02 EST Subject: Medication Management Submitted: Complete:atenolol (atenolol 100 mg oral tablet) Signed by STU CHURCH DO 08/17/2024 15:48:00 EST Approved with modifications: atenolol (ATENOLOL 100 MG TABLET) TAKE 1 TABLET BY MOUTH EVERY DAY Qty: 30 tab(s) Days Supply: 30 Refills: 5 Substitutions Allowed Route To Pharmacy - [facility]/pharmacy #[id number] --- From: [id number] To: STU CHURCH DO Sent: August 14, 2024 11:34:39 PM MERCHANDISING EXECUTION ASSOCIATE Subject: Medication Management Due: August 15, 2024 12:03:40 AM MERCHANDISING EXECUTION ASSOCIATE On Hold Pending Signature Dispensed Drug: atenolol (atenolol 100 mg oral tablet), TAKE 1 TABLET BY MOUTH EVERY DAY Quantity: 30 tab(s) Days Supply: 30 Refills: 5 Substitutions Allowed Notes from Pharmacy: --- [facility] 08-14-2024 Note - From: STU CHURCH DO To: [facility] Clinical Pool ([facility]); Sent: 08/14/2024 07:33:21 EST Subject: FW: Medication Management Due Date/Time: 08/15/2024 07:17:00 EST Caller Name: MUNA VELA; Caller Number: Glo , M --- From: [facility]ORE [id number] To: STU CHURCH DO Sent: August 14, 2024 6:17:23 AM MERCHANDISING EXECUTION ASSOCIATE Subject: Medication Management Due: August 15, 2024 12:03:40 AM MERCHANDISING EXECUTION ASSOCIATE On Hold Pending Signature Dispensed Drug: LORazepam (LORazepam 1 mg oral tablet), TAKE 1 TABLET BY MOUTH THREE TIMES A DAY Quantity: 90 tab(s) Days Supply: 30 Refills: 0 Substitutions Allowed Notes from Pharmacy: Not to exceed 5 additional fills before 01/12/2025 --- From: Lalita Mccarthy To: [id number] Sent: 08/14/2024 11:28:16 EST Subject: FW: Medication Management Not Approved: proposed to provider LORazepam (LORAZEPAM 1 MG TABLET) TAKE 1 TABLET BY MOUTH THREE TIMES A DAY Qty: 90 tab(s) Days Supply: 30 Refills: 0 Substitutions Allowed Route To Pharmacy - [id number] Note from Pharmacy: Not to exceed 5 additional fills before 01/12/2025 Signed by Fabio Lalita [facility] 07-19-2024 Note Entered by CHANTELLE CHURCH DO on July 19, 2024 09:11:22 EST From: STU CHURCH DO To: [facility]/pharm[facility] #[id number] Sent: 07/19/2024 09:11:22 EST Subject: Medication Management Submitted: Complete:tiZANidine (tiZANidine 4 mg oral tablet) Signed by STU CHURCH DO 07/19/2024 09:11:00 EST Approved with modifications: tiZANidine (TIZANIDINE HCL 4 MG TABLET) TAKE 1 TABLET BY MOUTH EVERY DAY Qty: 30 tab(s) Days Supply: 30 Refills: 2 Substitutions Allowed Route To Pharmacy - [facility]/pharmacy #[id number] --- From: [id number] To: STU CHURCH DO Sent: July 19, 2024 7:19:44 AM MERCHANDISING EXECUTION ASSOCIATE Subject: Medication Management Due: July 20, 2024 1:05:10 AM MERCHANDISING EXECUTION ASSOCIATE On Hold Pending Signature Dispensed Drug: tiZANidine (tiZANidine 4 mg oral tablet), TAKE 1 TABLET BY MOUTH EVERY DAY Quantity: 30 tab(s) Days Supply: 30 Refills: 2 Substitutions Allowed Notes from Pharmacy: --- [facility] 07-16-2024 Note - From: STU CHURCH DO To: [facility] Clinical Pool ([facility] Sent: 07/16/2024 09:59:41 EST Subject: FW: Medication Management Due Date/Time: 07/17/2024 08:45:00 EST Caller Name: MUNA VELA; Caller Number: , --- From: [facility] [id number] To: STU CHURCH DO Sent: July 16, 2024 7:45:30 AM MERCHANDISING EXECUTION ASSOCIATE Subject: Medication Management Due: July 17, 2024 12:29:40 AM MERCHANDISING EXECUTION ASSOCIATE On Hold Pending Signature Dispensed Drug: LORazepam (LORazepam 1 mg oral tablet), TAKE 1 TABLET BY MOUTH 3 TIMES A DAY Quantity: 90 tab(s) Days Supply: 30 Refills: 0 Substitutions Allowed Notes from Pharmacy: Not to exceed 5 additional fills before 12/13/2024 --- From: Lalita Mccarthy [facility]: [id number] Sent: 07/16/2024 10:35:17 EST Subject: FW: Medication Management Not Approved: proposed to provider LORazepam (LORAZEPAM 1 MG TABLET) TAKE 1 TABLET BY MOUTH 3 TIMES A DAY Qty: 90 tab(s) Days Supply: 30 Refills: 0 Substitutions Allowed Route To Pharmacy - [id number] Note from Pharmacy: Not to exceed 5 additional fills before 12/13/2024 Signed by Lalita Mccarthy [facility] 06-16-2024 Note - From: STU CHURCH DO To: [facility] Clinical Pool ([facility] Sent: 06/16/2024 10:06:21 EDT Subject: FW: Medication Management Due Date/Time: 06/17/2024 09:53:00 EDT Caller Name: MUNA VELA; Caller Number: H , M --- From: [employer] To: STU CHURCH DO Sent: June 16, [...] 11/16/2024 --- From: Malgorzata Zamudio MA To: [facility]/pharmacy #[id number] Sent: 06/16/2024 11:03:08 EDT Subject: FW: Medication Management Not Approved: Refill not appropriate, proposal sent to provider LORazepam (LORAZEPAM 1 MG TABLET) TAKE 1 TABLET BY MOUTH THREE TIMES A DAY Qty: 90 tab(s) Days Supply: 30 Refills: 0 Substitutions Allowed Route To Pharmacy - [facility] #[id number] Note from Pharmacy: Not to exceed 5 additional fills before 11/16/2024 Signed by Malgorzata Zamudio MA [facility] 05-19-2024 Note - From: STU CHURCH DO To: [facility] Clinical Pool ([facility] Sent: 05/19/2024 11:21:35 EDT Subject: FW: Medication Management Due Date/Time: 05/20/2024 09:10:00 EDT Caller Name: MUNA VELA; Caller Number: , --- From: [employer] To: STU CHURCH DO Sent: May 19, [...] before 10/13/2024 --- From: Lalita Mccarthy [facility]: [id number] Sent: 05/19/2024 17:19:18 EDT Subject: FW: Medication Management Not Approved: proposed to provider LORazepam (LORAZEPAM 1 MG TABLET) TAKE 1 TABLET BY MOUTH THREE TIMES A DAY Qty: 90 tab(s) Days Supply: 30 Refills: 0 Substitutions Allowed Route To Pharmacy - [id number] Note from Pharmacy: Not to exceed 5 additional fills before 10/13/2024 Signed by Lalita Mccarthy [facility] Evaluation note No assessment information availa [facility] Work Phone: Summary Purpose Family History No [...] section and content) DATE CREATED AUTHOR 09/07/2022 [facility] DATE CREATED AUTHOR AUTHOR'S ORGANIZ ATION 06/16/2023 [facility] DATE CREATED AUTHOR AUTHOR'S ORGANIZ ATION 05/16/2025 [facility] l Care Teams (unrecognized sec tion and content) Team Status: Active Member Role Status Dates Stu Church DO Primary Care Provider Active Team Status: Inactive Member Role Status Dates Stu Church DO Primary Care Provider, Attending Pr ovider Active Goals (unrecognized section and content) Goals [...] BE BASED ON THE PRIMARY CLINICAL RECORDS. [facility] [employer] [facility]. provides no warranty or guarantee of the accuracy or completeness of information in this document.
== END 2025-05-29 05:15 | disposition home or self-care (01) ==
PROVIDERS: Emergency Provider Student in an Organized Health Care Education/Training Program; PCP Family Medicine
DX: F11.23 Opioid dependence with withdrawal (principal)
CPT/HCPCS: 99283; J0574